=== PATIENT | female | born 1940 | race African-American/Black ===

== ENCOUNTER 2016-08-23 02:41 | Inpatient (IN) | payer MEDICARE, MEDICAID ==
[2016-08-23] VITALS (7 sets, daily range): BP systolic 126–148; BP diastolic 61–78
[~2016-08-23] VITALS: Ht 147.3 cm; Wt 91.3 kg
[2016-08-23] MEDS ORDERED: ALUM-MAG HYDRO360 ML PO (03:02)
[2016-08-23] MEDS ORDERED: GLIPIZIDE5 MG ORAL (03:02)
[2016-08-23] MEDS ORDERED: ASPIRIN81 MG ORAL (03:02)
[2016-08-23] MEDS ORDERED: TRADJENTA5 MG PO (03:02)
[2016-08-23] MEDS ORDERED: TYLENOL650 MG/20. ORAL (03:02)
[2016-08-23] MEDS ORDERED: NORVASC10 MG ORAL (03:02)
[2016-08-23] MEDS ORDERED: PRAVASTATIN SOD20 M1 ORAL (03:02)
[2016-08-23] MEDS ORDERED: DOCUSATE SODIU250 MG ORAL (03:02)
[2016-08-23] MEDS ORDERED: MILK OF MA400 MG/51 ORAL (03:02)
[2016-08-23] MEDS ORDERED: TYLENOL325 MG ORAL (03:02)
[2016-08-23] MEDS ORDERED: ATORVASTATIN CA10 MG ORAL (03:02)
[2016-08-23] MEDS ORDERED: MULTIVITAMINS1 EA14 PO (03:02)
[2016-08-23] MEDS ORDERED: NEPHRO-VITE RX1 EAC1 PO (03:02)
[2016-08-23] MEDS ORDERED: FERROUS SULFAT325 MG ORAL (03:02)
[2016-08-23] MEDS ORDERED: GEODON40 MG ORAL (03:02)
[2016-08-23] MEDS ORDERED: ZOFRAN8 MG ORAL (03:02)
[2016-08-23] MEDS ORDERED: INVEGA SUS156 MG/11 IM (03:02)
[2016-08-23] MEDS ORDERED: LAMICTAL100 MG ORAL (03:02)
[2016-08-23 03:15] LABS: BASOPHILS % (AUTO) 0.5 % (0.0-2.0); EOSINOPHILS % (AUTO) 1.4 % (0.0-3.0); LYMPHOCYTES % (AUTO) 17.7 % (20.0-45.0); MEAN CORPUSCULAR HEMOGLOBIN 24.6 PG (27.0-31.0); MEAN CORPUSCULAR HGB CONC 30.8 G/DL (32.0-36.0); MEAN CORPUSCULAR VOLUME 80 FL (80-99); MONOCYTES % (AUTO) 6.3 % (1.0-10.0); NEUTROPHILS % (AUTO) 74.1 % (45.0-75.0); PLATELET COUNT 250 K/UL (150-450); RED BLOOD COUNT 3.78 M/UL (4.20-5.40); RED CELL DISTRIBUTION WIDTH 17.5 % (11.6-14.8); WHITE BLOOD COUNT 10.7 K/UL (4.8-10.8)
[2016-08-23 03:18] LABS: APPEARANCE,URINE CLEAR; KETONES,URINE NEGATIVE (NEGATIVE); LEUKOCYTE ESTERASE ,URINE NEGATIVE (NEGATIVE); NITRITE,URINE NEGATIVE (NEGATIVE); PH,URINE 5 (4.5-8.0); UROBILINOGEN,URINE NORMAL MG/DL (0.0-1.0)
[2016-08-23 03:32] LABS: ALANINE AMINOTRANSFERASE 11 U/L (3-33); ANION GAP 18 (5-15); ASPARTATE AMINO TRANSFERASE 13 U/L (5-40); CALCIUM 8.6 mg/dL (8.6-10.2); CARBON DIOXIDE 19 mEQ/L (20-30); CHLORIDE 103 mEQ/L (98-107); CREATININE 2.5 mg/dL (0.5-0.9); HEMOLYSIS 36; POTASSIUM 5.1 mEQ/L (3.4-4.9); SODIUM 140 mEQ/L (135-145); TOTAL PROTEIN 6.8 g/dL (6.6-8.7)
[2016-08-23 03:46] LABS: PROTEIN,URINE NEGATIVE (NEGATIVE)
[2016-08-23 03:48] LABS: TROPONIN I < 0.30 ng/mL (<=0.30)
[2016-08-23 03:57] LABS: CKMB 1.8 ng/mL (< 3.8)
--- NOTE | 2016-08-23 04:14 | Emergency Room Report ---
History of Present Illness General Chief Complaint: Chest Pain Source: Medical Record Present Illness HPI 76YOF +smoker with SOB for 4 days, worse at night. Improves with sitting upright. Sleeps with 1 pillow. Decreased exercise tolerance on ambulating or using wheelchair at SNF. C/o weight gain. 197lbs in March 2016, now 208 per patient. Denies fever/chills, cough. Adds salt to food. Recently ate hamburgs, hotdogs at SNF. Drinks a lot of water. PMHx: COPD, Bipolar, Schizophrenia, ISABEL, DM, iron def anemia No known CHF history. Allergies: Coded Allergies: No Known Allergies (Unverified , 08/23/16) Patient History Past Medical History: other - see HPI Past Surgical History: none Pertinent Family History: none Social History: Reports: smoking Now: No Immunizations: UTD Reviewed Nursing Documentation: PMH: Agreed, PSxH: Agreed Nursing Documentation-PMH Hx Hypertension: Yes Hx COPD: Yes Hx Diabetes: Yes Hx Gastrointestinal Problems: Yes - GERD History Of Psychiatric Problem: Yes - BIPOLAR SCHIZO Review of Systems All Other Systems: negative except mentioned in HPI Physical Exam Vital Signs Date Time Temp Pulse Resp B/P Pulse Ox O2 Delivery O2 Flow Rate FiO2 08/23/16 02:35 97.7 92 16 143/61 95 Room Air Sp02 EP Interpretation: reviewed, normal General Appearance: normal inspection, well appearing, no apparent distress, alert, GCS 15, non-toxic Head: normocephalic, atraumatic Eyes: bilateral eye EOMI, bilateral eye PERRL ENT: normal ENT inspection, hearing grossly normal, normal voice Neck: normal inspection, full range of motion, supple, no bony tend Respiratory: normal inspection, lungs clear, normal breath sounds, no respiratory distress, no retraction, no wheezing Cardiovascular #1: regular rate, rhythm, no edema Gastrointestinal: normal inspection, normal bowel sounds, non tender, soft, no guarding, no hernia Genitourinary: no CVA tenderness Musculoskeletal: normal inspection, back normal, normal range of motion, Gina' s Sign negative, other - Bilateral R>L pitting edema 2+ Neurologic: normal inspection, alert, oriented x3, responsive, 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 I attest that this information is true, accurate and complete to the best of my knowledge. I understand that any falsification, omission, or concealment of material fact may subject me to administrative, civil, or criminal liability. This patient warrants hospital admission for extreme of age and has a condition that cannot be treated as outpatient. Diagnostic Impression: Primary Impression: Chest pain Qualified Codes: R07.9 - Chest pain, unspecified Additional Impressions: ISABEL (acute kidney injury) Hyperkalemia ER Course SOB - Possibly multifactorial COPD + new onset CHF - + smoker - No wheezing, doubt COPD exacerbation -2 days duration - Unlikely ACS given Troponin 0 here and ECG without ischemia or ST changes - Mild BNP elevation with bilateral pitting edema and CXR with pulm congestion. ?acute CHF, recent dietary indiscretion, decreased exercise tolerance O2 sat 100% on RA, does not warrant Lasix given ISABEL or BIPAP at this time. - Warrants admission for ACS as cause of acute CHF, cardiac echo, Cardiology consult, consider starting Lasix HyperK - Mild, 5.1 - Tx with albuterol ISABEL vs CKD - unknown baseline as patient hasnt been here before - No records from SNF with previous labs Endorsed to Dr Phelps for tele admit at 443am. EKG Diagnostic Results Rate: normal Rhythm: NSR ST Segments: no acute changes ASA given to the pt in ED: No Rhythm Strip Diag. Results EP Interpretation: yes Rate: 85 Rhythm: NSR, no PVC's, no ectopy Chest X-Ray Diagnostic Results EP Interpretation: Yes Findings: other - Cardiomegaly, bilateral mild interstitial fluid Number of Views: 1 Last Vital Signs Date Time Temp Pulse Resp B/P Pulse Ox O2 Delivery O2 Flow Rate FiO2 08/23/16 02:55 87 16 Room Air 08/23/16 02:55 97.7 143/61 95 Status: improved Disposition: ADMITTED INPATIENT Condition: Serious Referrals: ROSALES PHELPS (PCP) STEVE ZAPATA M.D. August 23, 2016 04:14
[2016-08-23] MEDS ORDERED: Albuterol ud Inhalation ONE (04:31)
[2016-08-23] MEDS ORDERED: Albuterol ud Inhalation HHN ONE (04:45)
[2016-08-23] MEDS ORDERED: Miralax 17gm pkt ORAL PRN (07:15)
[2016-08-23] MEDS ORDERED: Ketorolac 30mg Inj IV PRN (07:15)
[2016-08-23] MEDS ORDERED: DuoNeb 0.5-3(2.5)mg/3ml neb HHN PRN (07:15)
[2016-08-23] MEDS ORDERED: Diltiazem 25mg/5ml IV PRN (07:15)
[2016-08-23] MEDS ORDERED: Enalaprilat 2.5mg/2ml Inj IV PRN (07:15)
[2016-08-23] MEDS ORDERED: Morphine Sulfate 2mg/ml Inj IVP PRN (07:15)
[2016-08-23] MEDS ORDERED: Nitroglycerin Subl 0.4mg tab (Bottle Of 25) SL PRN (07:30)
--- NOTE | 2016-08-23 07:57 | General Progress Note ---
Progress Note Progress Note [id number] full consult dictated CRISTEL VALENCIA August 23, 2016 07:57
--- NOTE | 2016-08-23 08:06 | Cardiology Progress Note ---
Assessment/Plan Assessment/Plan The patient is seen and examined, full consult will be dictated shortly. Objective Last 24 Hour Vital Signs Date Time Temp Pulse Resp B/P Pulse Ox O2 Delivery O2 Flow Rate FiO2 08/23/16 06:40 97.3 77 20 147/77 97 Room Air 08/23/16 06:20 97.7 84 18 132/78 95 Room Air 0.5 08/23/16 05:59 97.7 84 18 132/78 95 Room Air 08/23/16 04:36 84 18 Room Air 08/23/16 04:36 97.7 81 16 126/72 97 Nasal Cannula 0.5 08/23/16 04:36 84 18 96 Room Air 08/23/16 02:55 87 16 Room Air 08/23/16 02:55 97.7 87 16 143/61 95 Room Air 08/23/16 02:35 97.7 92 16 143/61 95 Room Air Intake and Output 08/22/16 08/23/16 19:00 07:00 Intake Total 0 ml Balance 0 ml Intake Oral 0 ml # Voids 1 Laboratory Tests Test 08/23/16 02:51 08/23/16 03:08 White Blood Count 10.7 K/UL (4.8-10.8) Red Blood Count 3.78 M/UL (4.20-5.40) L Hemoglobin 9.3 G/DL (12.0-16.0) L Hematocrit 30.3 % (37.0-47.0) L Mean Corpuscular Volume 80 FL (80-99) Mean Corpuscular Hemoglobin 24.6 PG (27.0-31.0) L Mean Corpuscular Hemoglobin Concent 30.8 G/DL (32.0-36.0) L Red Cell Distribution Width 17.5 % (11.6-14.8) H Platelet Count 250 K/UL (150-450) Mean Platelet Volume 6.0 FL (6.5-10.1) L Neutrophils (%) (Auto) 74.1 % (45.0-75.0) Lymphocytes (%) (Auto) 17.7 % (20.0-45.0) L Monocytes (%) (Auto) 6.3 % (1.0-10.0) Eosinophils (%) (Auto) 1.4 % (0.0-3.0) Basophils (%) (Auto) 0.5 % (0.0-2.0) Sodium Level 140 mEQ/L (135-145) Potassium Level 5.1 mEQ/L (3.4-4.9) H Chloride Level 103 mEQ/L (98-107) Carbon Dioxide Level 19 mEQ/L (20-30) L Anion Gap 18 (5-15) H Blood Urea Nitrogen 35 mg/dL (7-23) H Creatinine 2.5 mg/dL (0.5-0.9) H Estimat Glomerular Filtration Rate mL/min (>60) Glucose Level 111 mg/dL (74-106) H Calcium Level 8.6 mg/dL (8.6-10.2) Total Bilirubin < 0.2 mg/dL (0.0-1.2) Aspartate Amino Transf (AST/SGOT) 13 U/L (5-40) Alanine Aminotransferase (ALT/SGPT) 11 U/L (3-33) Alkaline Phosphatase 88 U/L (35-104) Total Creatine Kinase 51 U/L (26-140) Creatine Kinase MB 1.8 ng/mL (< 3.8) Creatine Kinase MB Relative Index 3.5 Troponin I < 0.30 ng/mL (<=0.30) Pro-B-Type Natriuretic Peptide 261 pg/mL (0-125) H Total Protein 6.8 g/dL (6.6-8.7) Albumin 3.5 g/dL (3.5-5.2) Globulin 3.3 g/dL Albumin/Globulin Ratio 1.0 (1.0-2.7) Urine Color Yellow Urine Appearance Clear Urine pH 5 (4.5-8.0) Urine Specific [place] 1.010 (1.005-1.035) Urine Protein Negative (NEGATIVE) Urine Glucose (UA) Negative (NEGATIVE) Urine Ketones Negative (NEGATIVE) Urine Occult Blood Negative (NEGATIVE) Urine Nitrite Negative (NEGATIVE) Urine Bilirubin Negative (NEGATIVE) Urine Urobilinogen Normal MG/DL (0.0-1.0) Urine Leukocyte Esterase Negative (NEGATIVE) Urine Opiates Screen Negative (NEGATIVE) Urine Barbiturates Screen Negative (NEGATIVE) Phencyclidine (PCP) Screen Negative (NEGATIVE) Urine Amphetamines Screen Negative (NEGATIVE) Urine Benzodiazepines Screen Negative (NEGATIVE) Urine Cocaine Screen Negative (NEGATIVE) Urine Marijuana (THC) Screen Negative (NEGATIVE) KHALIF RAY August 23, 2016 08:06
[2016-08-23] MEDS ORDERED: Aspirin Baby 81mg ORAL SCH (09:00)
[2016-08-23 09:49] LABS: ALANINE AMINOTRANSFERASE 9 U/L (3-33); ANION GAP 13 (5-15); ASPARTATE AMINO TRANSFERASE 9 U/L (5-40); CALCIUM 9.3 mg/dL (8.6-10.2); CARBON DIOXIDE 25 mEQ/L (20-30); CHLORIDE 103 mEQ/L (98-107); CREATININE 2.6 mg/dL (0.5-0.9); HEMOLYSIS 0; PHOSPHORUS 3.4 mg/dL (2.5-4.8); POTASSIUM 4.6 mEQ/L (3.4-4.9); SODIUM 141 mEQ/L (135-145); TOTAL PROTEIN 7.2 g/dL (6.6-8.7); URIC ACID 7.1 mg/dL (3.0-7.5)
[2016-08-23 10:16] LABS: TROPONIN I < 0.30 ng/mL (<=0.30)
[2016-08-23] MEDS: NovoLOG Insulin Flexpen SUBQ SCH ×3 (11:30→21:00)
--- NOTE | 2016-08-23 11:53 | Diagnostic Imaging Report ---
Indication: Chest pain Technique: One view of the chest Comparison: none Findings: Body habitus limits evaluation The heart is enlarged. There is mild pulmonary venous congestion. Pleural spaces are grossly clear. There are degenerative changes of both shoulders Impression: Cardiomegaly. Mild pulmonary venous congestion This agrees with the preliminary interpretation provided by the emergency room physician
--- NOTE | 2016-08-23 12:22 | Consultation ---
History of Present Illness General Date patient seen: August 23, 2016 Chief Complaint: Chest Pain Referring physician: dr Ragland Reason for Consultation: dyspnea Present Illness HPI 76 year old female with pmhx of smoking, COPD, Bipolar, Schizophrenia, DM, iron def presented [place] [facility] [place] with SOB for 4 days, worse at night, improves with sitting upright. Sleeps with 1 pillow. Decreased exercise tolerance on ambulating or using wheelchair at SNF. Her CXR showed mild bilateral pulmonary edema. she is admitted to telemetry for further evaluation. Allergies: Coded Allergies: No Known Allergies (Unverified , 08/23/16) Medication History Scheduled Amlodipine Besylate (Norvasc), 10 MG ORAL DAILY, (Reported) Aspirin* (Aspirin*), 81 MG ORAL DAILY, (Reported) Atorvastatin Calcium* (Lipitor*), 10 MG ORAL BEDTIME, (Reported) Docusate Sodium* (Docusate Sodium*), 250 MG ORAL ONCE, (Reported) Ferrous Sulfate* (Ferrous Sulfate*), 325 MG ORAL DAILY, (Reported) Glipizide* (Glipizide*), 2.5 MG ORAL DAILY, (Reported) Lamotrigine* (Lamictal*), 100 MG ORAL BID, (Reported) Pravastatin Sod* (Pravastatin Sod*), 10 MG ORAL BEDTIME, (Reported) Ziprasidone Hcl* (Geodon*), 60 MG ORAL DAILY, (Reported) Scheduled PRN Acetaminophen (Tylenol), 650 MG ORAL Q4HR PRN for Pain Scale (3-5), (Reported) Acetaminophen (Acetaminophen), 1,000 MG ORAL Q4HR PRN for Pain Scale (6-10), ( Reported) Mag Hydrox/Al Hydrox/Simeth (Alum-Mag Hydroxide-Simeth Liq), 30 ML PO EVERY 4 HOURS PRN for gi distress, (Reported) Magnesium Hydroxide* (Milk Of Magnesia*), 30 ML ORAL DAILY PRN for Constipation, (Reported) Ondansetron Hcl* (Zofran*), 8 MG ORAL Q6H PRN for Nausea & Vomiting, (Reported) Miscellaneous Medications Linagliptin (Tradjenta), 5 MG PO, (Reported) Multivitamin (Multivitamins), 1 EACH PO, (Reported) Paliperidone Palmitate (Invega Sustenna), 156 MG IM, (Reported) Vit B Cmplx 3/Fa/Vit C/Biotin (Nephro-Sylvester Rx Tablet), 1 EACH PO, (Reported) Patient History Healthcare decision maker Resuscitation status Full Code Advanced Directive on File Past Medical/Surgical History Past Medical/Surgical History: (1) Morbid obesity Review of Systems All Other Systems: negative except mentioned in HPI Physical Exam General Appearance: WD/WN Lines, tubes and drains: peripheral, central line HEENT: normocephalic Neck: non-tender, normal alignment Respiratory/Chest: chest wall non-tender, lungs clear Breasts: no masses Cardiovascular/Chest: normal peripheral pulses Abdomen: normal bowel sounds Extremities: normal range of motion Skin Exam: normal pigmentation Last 24 Hour Vital Signs Date Time Temp Pulse Resp B/P Pulse Ox O2 Delivery O2 Flow Rate FiO2 08/23/16 10:46 109 142/64 08/23/16 10:46 109 142/64 08/23/16 08:25 97.0 109 20 142/64 95 Room Air 08/23/16 06:40 97.3 77 20 147/77 97 Room Air 08/23/16 06:20 97.7 84 18 132/78 95 Room Air 0.5 08/23/16 05:59 97.7 84 18 132/78 95 Room Air 08/23/16 04:36 84 18 Room Air 08/23/16 04:36 97.7 81 16 126/72 97 Nasal Cannula 0.5 08/23/16 04:36 84 18 96 Room Air 08/23/16 02:55 87 16 Room Air 08/23/16 02:55 97.7 87 16 143/61 95 Room Air 08/23/16 02:35 97.7 92 16 143/61 95 Room Air Intake and Output 08/22/16 08/23/16 19:00 07:00 Intake Total 0 ml Balance 0 ml Intake Oral 0 ml # Voids 1 Laboratory Tests Test 08/23/16 02:51 08/23/16 03:08 08/23/16 09:05 White Blood Count 10.7 K/UL (4.8-10.8) Red Blood Count 3.78 M/UL (4.20-5.40) L Hemoglobin 9.3 G/DL (12.0-16.0) L Hematocrit 30.3 % (37.0-47.0) L Mean Corpuscular Volume 80 FL (80-99) Mean Corpuscular Hemoglobin 24.6 PG (27.0-31.0) L Mean Corpuscular Hemoglobin Concent 30.8 G/DL (32.0-36.0) L Red Cell Distribution Width 17.5 % (11.6-14.8) H Platelet Count 250 K/UL (150-450) Mean Platelet Volume 6.0 FL (6.5-10.1) L Neutrophils (%) (Auto) 74.1 % (45.0-75.0) Lymphocytes (%) (Auto) 17.7 % (20.0-45.0) L Monocytes (%) (Auto) 6.3 % (1.0-10.0) Eosinophils (%) (Auto) 1.4 % (0.0-3.0) Basophils (%) (Auto) 0.5 % (0.0-2.0) Sodium Level 140 mEQ/L (135-145) 141 mEQ/L (135-145) Potassium Level 5.1 mEQ/L (3.4-4.9) H 4.6 mEQ/L (3.4-4.9) Chloride Level 103 mEQ/L (98-107) 103 mEQ/L (98-107) Carbon Dioxide Level 19 mEQ/L (20-30) L 25 mEQ/L (20-30) Anion Gap 18 (5-15) H 13 (5-15) Blood Urea Nitrogen 35 mg/dL (7-23) H 35 mg/dL (7-23) H Creatinine 2.5 mg/dL (0.5-0.9) H 2.6 mg/dL (0.5-0.9) H Estimat Glomerular Filtration Rate mL/min (>60) mL/min (>60) Glucose Level 111 mg/dL (74-106) H 127 mg/dL (74-106) H Calcium Level 8.6 mg/dL (8.6-10.2) 9.3 mg/dL (8.6-10.2) Total Bilirubin < 0.2 mg/dL (0.0-1.2) 0.2 mg/dL (0.0-1.2) Aspartate Amino Transf (AST/SGOT) 13 U/L (5-40) 9 U/L (5-40) Alanine Aminotransferase (ALT/SGPT) 11 U/L (3-33) 9 U/L (3-33) Alkaline Phosphatase 88 U/L (35-104) 89 U/L (35-104) Total Creatine Kinase 51 U/L (26-140) 63 U/L (26-140) Creatine Kinase MB 1.8 ng/mL (< 3.8) Creatine Kinase MB Relative Index 3.5 Troponin I < 0.30 ng/mL (<=0.30) < 0.30 ng/mL (<=0.30) Pro-B-Type Natriuretic Peptide 261 pg/mL (0-125) H Total Protein 6.8 g/dL (6.6-8.7) 7.2 g/dL (6.6-8.7) Albumin 3.5 g/dL (3.5-5.2) 3.7 g/dL (3.5-5.2) Globulin 3.3 g/dL 3.5 g/dL Albumin/Globulin Ratio 1.0 (1.0-2.7) 1.0 (1.0-2.7) Urine Color Yellow Urine Appearance Clear Urine pH 5 (4.5-8.0) Urine Specific [place] 1.010 (1.005-1.035) Urine Protein Negative (NEGATIVE) Urine Glucose (UA) Negative (NEGATIVE) Urine Ketones Negative (NEGATIVE) Urine Occult Blood Negative (NEGATIVE) Urine Nitrite Negative (NEGATIVE) Urine Bilirubin Negative (NEGATIVE) Urine Urobilinogen Normal MG/DL (0.0-1.0) Urine Leukocyte Esterase Negative (NEGATIVE) Urine Opiates Screen Negative (NEGATIVE) Urine Barbiturates Screen Negative (NEGATIVE) Phencyclidine (PCP) Screen Negative (NEGATIVE) Urine Amphetamines Screen Negative (NEGATIVE) Urine Benzodiazepines Screen Negative (NEGATIVE) Urine Cocaine Screen Negative (NEGATIVE) Urine Marijuana (THC) Screen Negative (NEGATIVE) Plasma/Serum Osmolality Pending Uric Acid 7.1 mg/dL (3.0-7.5) Phosphorus Level 3.4 mg/dL (2.5-4.8) Magnesium Level 2.0 mg/dL (1.7-2.5) Free Thyroxine 1.05 ng/dL (0.86-1.85) Free Triiodothyronine Pending Cortisol Pending Height (Feet): 4 Height (Inches): 10.00 Weight (Pounds): 208 Medications Current Medications Medications (Trade) Dose Ordered Sig/Jaclyn Route PRN Reason Start Time Stop Time Status Last Admin Dose Admin Acetaminophen (Tylenol) 650 mg Q4H PRN ORAL T>100.5 08/23/16 07:15 09/22/16 07:14 Albuterol/ Ipratropium (DuoNeb 0.5-3(2.5)mg/3ml) 3 ml Q4H PRN HHN Shortness of Breath 08/23/16 07:15 08/28/16 07:14 Amlodipine Besylate (Norvasc) 10 mg DAILY ORAL 08/23/16 09:00 09/22/16 08:59 08/23/16 10:46 Aspirin (ASA) 162 mg DAILY ORAL 08/23/16 09:00 09/22/16 08:59 08/23/16 10:46 Atorvastatin Calcium (Lipitor) 10 mg BEDTIME ORAL 08/23/16 21:00 09/22/16 20:59 Carvedilol (Coreg) 3.125 mg EVERY 12 HOURS ORAL 08/23/16 09:00 09/22/16 08:59 08/23/16 10:46 Dextrose (Dextrose 50%) STAT PRN IV Hypoglycemia 08/23/16 07:15 09/22/16 07:14 Diltiazem HCl (Cardizem) 10 mg EVERY HOUR PRN IV HR>120 BPM 08/23/16 07:15 09/22/16 07:14 Enalaprilat (Vasotec) 2.5 mg Q6H PRN IV SBP>160 mmHg 08/23/16 07:15 09/22/16 07:14 Heparin Sodium (Porcine) (Heparin 5000 units/ml) 5,000 units EVERY 8 HOURS SUBQ 08/23/16 14:00 09/22/16 13:59 Insulin Aspart (NovoLOG) BEFORE MEALS AND HS SUBQ 08/23/16 11:30 09/22/16 11:29 Lamotrigine (LaMICtal) 100 mg Q12HR ORAL 08/23/16 09:00 09/22/16 08:59 08/23/16 10:46 Morphine Sulfate (Morphine Sulfate) 2 mg Q4H PRN IVP Severe Pain (Pain Scale 7-10) 08/23/16 07:15 08/30/16 07:14 Nitroglycerin (Ntg) 0.4 mg Q5MIN X 3 DOSES PRN SL Prn Chest Pain 08/23/16 07:30 09/22/16 07:29 Ondansetron HCl (Zofran) 4 mg Q6H PRN IVP Nausea & Vomiting 08/23/16 07:15 09/22/16 07:14 Polyethylene Glycol (Miralax) 17 gm DAILYPRN PRN ORAL Constipation 08/23/16 07:15 09/22/16 07:14 Temazepam (Restoril) 15 mg HSPRN PRN ORAL Insomnia 08/23/16 21:00 08/30/16 20:59 Assessment/Plan Problem List: (1) Hyperkalemia ICD Codes: E87.5 - Hyperkalemia SNOMED: 01941539 (2) ISABEL (acute kidney injury) ICD Codes: N17.9 - Acute kidney failure, unspecified SNOMED: 99544917 (3) Chest pain ICD Codes: R07.9 - Chest pain, unspecified SNOMED: 23388661 Qualifiers: Qualified Codes: R07.9 - Chest pain, unspecified (4) Morbid obesity ICD Codes: E66.01 - Morbid (severe) obesity due to excess calories SNOMED: 140323674, [id number] Assessment/Plan respiratory treatment cardiac evaluation diuretics renal evaluation sliding scale. JORGE CHARLTON August 23, 2016 12:22
--- NOTE | 2016-08-23 12:33 | Diagnostic Imaging Report ---
APPROVED REPORT CPT Code: 53927 Present Symptoms Lower Extremity Pain: Bilateral BILATERAL: Imaging reveals a patent deep venous system bilaterally. There is no evidence of thrombus within the femoral, popliteal or tibial segments. The greater saphenous veins are also within normal limits. Doppler indicates normal spontaneous flow within these segments.
--- NOTE | 2016-08-23 13:15 | Consultation ---
DATE OF CONSULTATION: 08/23/2016 NEPHROLOGY CONSULTATION CONSULTING PHYSICIAN: Suzanne Abrams M.D. REFERRING PHYSICIAN: Emir Ragland D.O. REASON FOR CONSULTATION: Acute renal failure. HISTORY OF PRESENT ILLNESS: The patient is a 76-year-old, female with past medical history significant for diabetes, hypertension, history of bipolar disease and schizophrenia, who was brought in to [facility] for evaluation of acute shortness of breath. Apparently, the patient started having worsening of her shortness of breath for the last 4 days also she noticed lower extremity edema. She was brought into ER, in the ER, the patient found to be fluid overloaded. There was found to have an acute renal failure. Consequently, the patient was then admitted in telemetry unit. I was called for management of renal disease and electrolyte imbalance. PAST MEDICAL HISTORY: Includin. Diabetes. 2. Diabetic neuropathy. 3. Hypertension. 4. Morbid obesity. 5. Bipolar disease. 6. Schizophrenia. 7. History of COPD. PAST SURGICAL HISTORY: None. MEDICATIONS: Medication at longterm are includin. Aspirin. 2. Glipizide. 3. Lipitor. 4. Norvasc. 5. Insulin. 6. Aspirin 81 mg. 7. Norvasc 10 mg p.o. daily. 8. Iron sulfate 325 mg. 9. 95 mg. 10. Lamictal 10 mg p.o. daily. 11. Tradjenta 5 mg p.o. daily. 12. Magnesium sulfate 400 mg p.r.n. 13. Ambien one tablet p.o. daily. 14. Zofran 8 mg p.o. daily p.r.n. nausea and vomiting. 15. Pravastatin 40 mg at bedtime. 16. Nephro-Sylvester one tablet p.o. daily. 17. Geodon 40 mg p.o. daily. 18. Tylenol 650 mg q. 6h p.r.n. pain. ALLERGIES: No known drug allergies. SOCIAL HISTORY: Long history of smoking. There is no current history of alcohol or drug use. FAMILY HISTORY: Negative for any history of premature heart disease. REVIEW OF SYSTEMS: General: She complained of generalized weakness. Denied any fever, chills, or night sweats. Head And Neck: Denies any dysphagia, odynophagia, blurry vision, headache, or neck stiffness. Pulmonary: Complaining of shortness of breath. No cough. No sputum. Cardiovascular: Denies any chest pain or palpitations. Complained of orthopnea, PND and leg swelling. Gastrointestinal: Denies any nausea, vomiting, diarrhea, hematemesis, or hematochezia. Genitourinary: Denies any dysuria, frequency, or hematuria. Musculoskeletal: She denies any weakness or numbness. PHYSICAL EXAMINATION: VITAL SIGNS: The patient had temperature of 97.0 degrees, pulse of 92, blood pressure 143/61, pulse rate of 95, and respiratory rate of 18. HEAD AND NECK: No JVP. No LAD. No thyromegaly. Extraocular movement are intact. Pupils are reactive to light and accommodation. LUNGS: Bilateral crackles and decreased breathing sound on the both sides. CARDIAC: Regular rate and rhythm. S1 and S2. No murmur. No rub. ABDOMEN: Soft, nontender, and nondistended. EXTREMITIES: A 3+ edema. No clubbing. No cyanosis. LABORATORY AND DIAGNOSTIC DATA: The patient has sodium 140, potassium 5.1, chloride 103, bicarbonate 19, BUN of 35, creatinine of 2.5, glucose of 111, and calcium of 8.6. AST of 13, ALT of 11, and alkaline phosphorus of 88. BNP of 261. Total protein of 6.8, albumin of 3.5. CBC, WBC count of 10.7, hemoglobin of 9.3, hematocrit of 30, and platelet count of 260,000. UA revealed specific gravity of 1.010, pH of 5, no WBC, no RBC, no protein. ASSESSMENT: 1. Mild hyperkalemia. 2. Acute renal failure. The etiology of acute renal failure including acute tubular necrosis due to unstable hemodynamics. 3. Chronic kidney disease due to diabetic nephropathy versus hypertensive nephrosclerosis without any evidence of proteinuria in the urine. 4. Lower-extremity edema, possibility are including congestive heart failure versus the patient on chronically on Norvasc, which could cause vasodilation and lower extremity edema. PLAN: Plan for the patient to obtain a random urine protein creatinine ratio to calculate the proteinuria. Check the urine sodium and creatinine to calculate fractional excretion of sodium. Ultrasound of the kidney to evaluate the kidney size. Check the Is and Os, daily weight with also do a duplex lower extremity to rule out DVT. I would like to thank, Dr. Emir Ragland, for allowing me to participate in the care of this patient. Suzanne Abrams M.D. DR: Mahamed JOB#: [id number] CC:
[2016-08-23] MEDS: Heparin 5000 units/ml inj SUBQ SCH ×2 (14:00→22:00)
--- NOTE | 2016-08-23 19:00 | History and Physical Report ---
DATE OF ADMISSION: 08/23/2016 TIME SEEN: 1 p.m. CONSULTANTS: 1. Moriah Almonte M.D. 2. Anand Burris M.D. 3. Suzanne Abrams M.D. 4. Paola Canchola M.D. CHIEF COMPLAINTS: Shortness of breath, slight chest pain, and encephalopathy. BRIEF HISTORY: This is a 76-year-old female from [facility], presented with increased shortness of breath and slight chest pain, diagnosed with the above, CHF exacerbation with edema, and admitted to telemetry for further care. Currently, slightly angry, sitting in chair, slight short of breath, no complaints. PAST MEDICAL HISTORY: Includes CHF, encephalopathy, ISABEL, edema, and thyroid problem. PAST SURGICAL HISTORY: Hysterectomy. MEDICATIONS: Lipitor, Restoril, heparin, Lasix, NovoLog, Norvasc, Lamictal, aspirin, Coreg, nitroglycerin, DuoNeb, Tylenol, morphine, MiraLax, Zofran, Levophed, and Cardizem. ALLERGIES: Denies. SOCIAL HISTORY: Positive for smoking. No alcohol. No intravenous drug abuse. FAMILY HISTORY: Noncontributory. REVIEW OF SYSTEMS: Slight chest pain. Slight shortness of breath. No nausea, vomiting, or diarrhea. PHYSICAL EXAMINATION: GENERAL: Slightly anxious in bed, oriented x2, and in no acute distress. VITAL SIGNS: Show temperature is 97 degrees, pulse 77, respirations 18, and blood pressure 148/68. CARDIOVASCULAR: No murmurs. LUNGS: Poor air exchange. ABDOMEN: Positive bowel sounds. Soft, nontender, and nondistended. EXTREMITIES: Show no cyanosis or clubbing. A 1+ edema bilaterally. NEUROLOGIC: The patient moves all extremities. Slightly lower extremity weakness noted. LABORATORY DATA: Lab exam show hemoglobin 9.3, otherwise CBC is normal. BMP shows initially potassium of 5.1, bicarbonate 12, BUN and creatinine 35 and 2.5, and glucose 111. BMP is 361. Urinalysis is negative. Urine tox is negative. ASSESSMENT: 1. Shortness of breath. 2. Slight chest pain. 3. Anemia. 4. Congestive heart failure. 5. Encephalopathy. 6. Acute kidney injury. 7. Edema. 8. Thyroid disease. PLAN: 1. Continue premedications. 2. O2 and pulmonary treatment. 3. Diuresis. 4. Blood pressure control. 5. Dietary followup. 6. OT, PT, and dietary evaluation. 7. CBC and BMP in the morning. 8. Troponin q.8 x3. 9. EKG in the morning. 10. Dr. Almonte, Dr. Burris, Dr. Abrams, and Dr. Canchola to consult. We will continue to follow this patient medically. Emir Ragland D.O. DR: STANISLAV JOB#: [id number] CC:
[2016-08-24] MEDS: Heparin 5000 units/ml inj SUBQ SCH ×4 (05:57→22:00)
[2016-08-24] MEDS: NovoLOG Insulin Flexpen SUBQ SCH ×4 (05:57→21:00)
[2016-08-24] MEDS ORDERED: Nitroglycerin Subl 0.4mg tab (Bottle Of 25) SL PRN (06:15)
[2016-08-24] MEDS ORDERED: Enalaprilat 2.5mg/2ml Inj IV PRN (06:40)
[2016-08-24] MEDS ORDERED: DuoNeb 0.5-3(2.5)mg/3ml neb HHN PRN (06:43)
[2016-08-24] MEDS ORDERED: Morphine Sulfate 2mg/ml Inj IVP PRN (06:43)
[2016-08-24] MEDS ORDERED: Miralax 17gm pkt ORAL PRN (06:44)
[2016-08-24 06:50] LABS: MEAN CORPUSCULAR HEMOGLOBIN 25.4 PG (27.0-31.0); MEAN CORPUSCULAR HGB CONC 32.1 G/DL (32.0-36.0); MEAN CORPUSCULAR VOLUME 79 FL (80-99); MEAN PLATELET VOLUME 5.7 FL (6.5-10.1); PLATELET COUNT 273 K/UL (150-450); RED BLOOD COUNT 3.84 M/UL (4.20-5.40); RED CELL DISTRIBUTION WIDTH 17.1 % (11.6-14.8); WHITE BLOOD COUNT 10.7 K/UL (4.8-10.8)
[2016-08-24] MEDS ORDERED: Diltiazem 25mg/5ml IV PRN (07:00)
[2016-08-24 07:04] LABS: PROTHROMBIN TIME 10.5 SEC (9.30-11.50)
[2016-08-24 07:12] LABS: APPEARANCE,URINE CLEAR; KETONES,URINE NEGATIVE (NEGATIVE); LEUKOCYTE ESTERASE ,URINE NEGATIVE (NEGATIVE); NITRITE,URINE NEGATIVE (NEGATIVE); PH,URINE 6 (4.5-8.0); PROTEIN,URINE 3+ (NEGATIVE); UROBILINOGEN,URINE NORMAL MG/DL (0.0-1.0)
[2016-08-24 07:31] LABS: BACTERIA,URINE FEW /HPF; RBC,URINE 0-2 /HPF (0 - 2); SQUAMOUS EPITHELIAL CELL,UR FEW /LPF (NONE/OCC); WBC,URINE 0-2 /HPF (0 - 2)
[2016-08-24 07:39] LABS: HEMOLYSIS 5; IRON 31 ug/dL (37-145); TOTAL IRON BINDING CAPACITY 286 ug/dL (250-400)
[2016-08-24 07:42] LABS: TROPONIN I < 0.30 ng/mL (<=0.30)
[2016-08-24 07:46] LABS: ANION GAP 16 (5-15); CALCIUM 9.4 mg/dL (8.6-10.2); CARBON DIOXIDE 22 mEQ/L (20-30); CHLORIDE 104 mEQ/L (98-107); CREATININE 2.3 mg/dL (0.5-0.9); HEMOLYSIS 1; POTASSIUM 4.9 mEQ/L (3.4-4.9); SODIUM 142 mEQ/L (135-145); THYROID STIMULATING HORMONE 2.94 uIU/mL (0.300-4.500)
[2016-08-24 07:50] LABS: CHOLESTEROL/HDL RATIO 2.3 (3.3-4.4); CRP QUANT 1.8 mg/dL (< 0.5)
[2016-08-24 07:59] VITALS: BP 145/74
[2016-08-24 09:07] LABS: ERYTHROCYTE SEDIMENTATION RATE 50 MM/HR (0-30); PATH BLOOD SMEAR/OMC SENT TO PATHOLOGIST
[2016-08-24] MEDS: Aspirin Baby 81mg ORAL SCH (09:13)
[2016-08-24 09:53] LABS: ANISOCYTOSIS 1+; BAND NEUTROPHILS % (MANUAL) 0 % (0-8); BASOPHILS % (MANUAL) 0 % (0-2); EOSINOPHILS % (MANUAL) 0 % (0-3); LYMPHOCYTES % (MANUAL) 12 % (20-45); MICROCYTES 1+; NEUTROPHILS % (MANUAL) 82 % (45-75); PLATELET ESTIMATE ADEQUATE; PLATELET MORPHOLOGY NORMAL; TOTAL CELLS COUNTED 100
[2016-08-24 10:16] LABS: RETICULOCYTE COUNT 1.6 % (0.0-2.0)
[2016-08-24 12:01] VITALS: BP 141/60
--- NOTE | 2016-08-24 13:03 | Pulmonology Progress Note ---
Assessment/Plan Problems: (1) Hyperkalemia (2) ISABEL (acute kidney injury) (3) Chest pain (4) Morbid obesity Assessment/Plan improving walking around labs better echo results noted, EF of 55% venous doppler negative. all notes reviewed Subjective ROS Limited/Unobtainable: No Constitutional: Reports: no symptoms HEENT: Repors: no symptoms Allergies: Coded Allergies: No Known Allergies (Unverified , 08/23/16) Objective Last 24 Hour Vital Signs Date Time Temp Pulse Resp B/P Pulse Ox O2 Delivery O2 Flow Rate FiO2 08/24/16 12:01 97.5 90 18 141/60 93 Room Air 08/24/16 09:13 92 145/74 08/24/16 09:13 92 145/74 08/24/16 07:59 97.2 92 18 145/74 95 Room Air 08/23/16 19:30 80 18 Room Air 21 08/23/16 15:49 97.7 89 20 144/69 95 Room Air 08/23/16 15:11 77 18 Room Air Intake and Output 08/23/16 08/24/16 19:00 07:00 Intake Total 240 ml Balance 240 ml Intake Oral 240 ml # Voids 2 2 General Appearance: WD/WN HEENT: normocephalic Respiratory/Chest: chest wall non-tender, lungs clear Breasts: no masses Cardiovascular: normal peripheral pulses, normal rate Abdomen: normal bowel sounds, soft, non tender, non distended Extremities: no cyanosis Skin: no rash Lymphatic: no neck adenopathy Laboratory Tests 08/24/16 06:06: Urine Creatinine 37.0 08/24/16 06:07: Urine Color Pale yellow, Urine Appearance Clear, Urine pH 6, Urine Specific [place] 1.010, Urine Protein 3+H, Urine Glucose (UA) Negative, Urine Ketones Negative, Urine Occult Blood Negative, Urine Nitrite Negative, Urine Bilirubin Negative, Urine Urobilinogen Normal, Urine Leukocyte Esterase Negative, Urine RBC 0-2, Urine WBC 0-2, Urine Squamous Epithelial Cells Few, Urine Bacteria Few , Urine Eosinophils None seen, Urine Osmolality [Pending], Urine Random Creatinine [Pending], Urine Random Microalbumin [Pending], Urine Random Total Protein 115, Urine Random Sodium 74, Urine Random Chloride 60, Urine Microalbumin/Creatinine Ratio [Pending], Urine Potassium Timed 14 08/24/16 06:25: White Blood Count 10.7, Red Blood Count 3.84L, Hemoglobin 9.7L, Hematocrit 30.4L , Mean Corpuscular Volume 79L, Mean Corpuscular Hemoglobin 25.4L, Mean Corpuscular Hemoglobin Concent 32.1, Red Cell Distribution Width 17.1H, Platelet Count 273, Mean Platelet Volume 5.7L, Neutrophils (%) (Auto) , Lymphocytes (%) (Auto) , Monocytes (%) (Auto) , Eosinophils (%) (Auto) , Basophils (%) (Auto) , Differential Total Cells Counted 100, Neutrophils % ( Manual) 82H, Lymphocytes % (Manual) 12L, Monocytes % (Manual) 6, Eosinophils % ( Manual) 0, Basophils % (Manual) 0, Band Neutrophils 0, Platelet Estimate Adequate, Platelet Morphology Normal, Anisocytosis 1+, Microcytosis 1+, Erythrocyte Sedimentation Rate 50H, Reticulocyte Count 1.6, Prothrombin Time 10.5, Prothromb Time International Ratio 1.0, Activated Partial Thromboplast Time 35H, Sodium Level 142, Potassium Level 4.9, Chloride Level 104, Carbon Dioxide Level 22, Anion Gap 16H, Blood Urea Nitrogen 29H, Creatinine 2.3H, Estimat Glomerular Filtration Rate , Glucose Level 76, Calcium Level 9.4, Iron Level 31L, Total Iron Binding Capacity 286, Percent Iron Saturation 11L, Unsaturated Iron Binding 255, Lactate Dehydrogenase [Pending], Troponin I < 0.30 , C-Reactive Protein, Quantitative 1.8H, Triglycerides Level 67, Cholesterol Level 182, LDL Cholesterol 90, HDL Cholesterol 79H, Cholesterol/HDL Ratio 2.3L, Carcinoembryonic Antigen 1.9, Vitamin B12 Level 864, Folate [Pending], Thyroid Stimulating Hormone (TSH) 2.940 Current Medications Medications (Trade) Dose Ordered Sig/Jaclyn Route PRN Reason Start Time Stop Time Status Last Admin Dose Admin Acetaminophen (Tylenol) 650 mg Q4H PRN ORAL T>100.5 08/24/16 06:39 09/23/16 06:38 Albuterol/ Ipratropium (DuoNeb 0.5-3(2.5)mg/3ml) 3 ml Q4H PRN HHN Shortness of Breath 08/24/16 06:43 08/29/16 06:42 Amlodipine Besylate (Norvasc) 10 mg DAILY ORAL 08/24/16 09:00 09/23/16 08:59 08/24/16 09:13 Aspirin (ASA) 162 mg DAILY ORAL 08/24/16 09:00 09/23/16 08:59 08/24/16 09:13 Atorvastatin Calcium (Lipitor) 10 mg BEDTIME ORAL 08/24/16 21:00 09/23/16 20:59 Carvedilol (Coreg) 3.125 mg EVERY 12 HOURS ORAL 08/24/16 09:00 09/23/16 08:59 08/24/16 09:13 Dextrose (Dextrose 50%) STAT PRN IV Hypoglycemia 08/24/16 06:40 09/23/16 06:39 Enalaprilat (Vasotec) 2.5 mg Q6H PRN IV SBP>160 mmHg 08/24/16 06:40 09/23/16 06:39 Furosemide (Lasix) 40 mg EVERY 8 HOURS IV 08/24/16 14:00 09/23/16 13:59 Heparin Sodium (Porcine) (Heparin 5000 units/ml) 5,000 units EVERY 8 HOURS SUBQ 08/24/16 14:00 09/23/16 13:59 Insulin Aspart (NovoLOG) BEFORE MEALS AND HS SUBQ 08/24/16 11:30 09/23/16 11:29 Lamotrigine (LaMICtal) 100 mg Q12HR ORAL 08/24/16 09:00 09/23/16 08:59 08/24/16 09:13 Morphine Sulfate (Morphine Sulfate) 2 mg Q4H PRN IVP Severe Pain (Pain Scale 7-10) 08/24/16 06:43 08/31/16 06:42 Nitroglycerin (Ntg) 0.4 mg Q5MIN X 3 DOSES PRN SL Prn Chest Pain 08/24/16 06:15 09/23/16 06:14 Ondansetron HCl (Zofran) 4 mg Q6H PRN IVP Nausea & Vomiting 08/24/16 06:43 09/23/16 06:42 Polyethylene Glycol (Miralax) 17 gm DAILYPRN PRN ORAL Constipation 08/24/16 06:44 09/23/16 06:43 Temazepam (Restoril) 15 mg HSPRN PRN ORAL Insomnia 08/24/16 06:44 08/31/16 06:43 JORGE CHARLTON August 24, 2016 13:03
--- NOTE | 2016-08-24 14:09 | General Progress Note ---
Assessment/Plan Problem List: (1) Edema ICD Codes: R60.9 - Edema, unspecified SNOMED: 196698140, 262772327 (2) CHF (congestive heart failure) ICD Codes: I50.9 - Heart failure, unspecified SNOMED: 37560639 (3) SOB (shortness of breath) ICD Codes: R06.02 - Shortness of breath SNOMED: 902966444 (4) Hyperkalemia ICD Codes: E87.5 - Hyperkalemia SNOMED: 15885116 (5) ISABEL (acute kidney injury) ICD Codes: N17.9 - Acute kidney failure, unspecified SNOMED: 19844402 (6) Morbid obesity ICD Codes: E66.01 - Morbid (severe) obesity due to excess calories SNOMED: 673293372, 35022465320633 (7) Chest pain ICD Codes: R07.9 - Chest pain, unspecified SNOMED: 86032138 Qualifiers: Qualified Codes: R07.9 - Chest pain, unspecified Status: stable, progressing, tolerating diet Assessment/Plan ot pt diet o2 pulm tx psyc tx cbc bmp in am Subjective Constitutional: Reports: weakness Allergies: Coded Allergies: No Known Allergies (Unverified , 08/23/16) All Systems: reviewed and negative except above Subjective calm sleepy in bed Objective Last 24 Hour Vital Signs Date Time Temp Pulse Resp B/P Pulse Ox O2 Delivery O2 Flow Rate FiO2 08/24/16 12:01 97.5 90 18 141/60 93 Room Air 08/24/16 09:13 92 145/74 08/24/16 09:13 92 145/74 08/24/16 07:59 97.2 92 18 145/74 95 Room Air 08/23/16 19:30 80 18 Room Air 21 08/23/16 15:49 97.7 89 20 144/69 95 Room Air 08/23/16 15:11 77 18 Room Air Intake and Output 08/23/16 08/24/16 19:00 07:00 Intake Total 240 ml Balance 240 ml Intake Oral 240 ml # Voids 2 2 Laboratory Tests 08/24/16 06:06: Urine Creatinine 37.0 08/24/16 06:07: Urine Color Pale yellow, Urine Appearance Clear, Urine pH 6, Urine Specific [place] 1.010, Urine Protein 3+H, Urine Glucose (UA) Negative, Urine Ketones Negative, Urine Occult Blood Negative, Urine Nitrite Negative, Urine Bilirubin Negative, Urine Urobilinogen Normal, Urine Leukocyte Esterase Negative, Urine RBC 0-2, Urine WBC 0-2, Urine Squamous Epithelial Cells Few, Urine Bacteria Few , Urine Eosinophils None seen, Urine Osmolality [Pending], Urine Random Creatinine [Pending], Urine Random Microalbumin [Pending], Urine Random Total Protein 115, Urine Random Sodium 74, Urine Random Chloride 60, Urine Microalbumin/Creatinine Ratio [Pending], Urine Potassium Timed 14 08/24/16 06:25: White Blood Count 10.7, Red Blood Count 3.84L, Hemoglobin 9.7L, Hematocrit 30.4L , Mean Corpuscular Volume 79L, Mean Corpuscular Hemoglobin 25.4L, Mean Corpuscular Hemoglobin Concent 32.1, Red Cell Distribution Width 17.1H, Platelet Count 273, Mean Platelet Volume 5.7L, Neutrophils (%) (Auto) , Lymphocytes (%) (Auto) , Monocytes (%) (Auto) , Eosinophils (%) (Auto) , Basophils (%) (Auto) , Differential Total Cells Counted 100, Neutrophils % ( Manual) 82H, Lymphocytes % (Manual) 12L, Monocytes % (Manual) 6, Eosinophils % ( Manual) 0, Basophils % (Manual) 0, Band Neutrophils 0, Platelet Estimate Adequate, Platelet Morphology Normal, Anisocytosis 1+, Microcytosis 1+, Erythrocyte Sedimentation Rate 50H, Reticulocyte Count 1.6, Prothrombin Time 10.5, Prothromb Time International Ratio 1.0, Activated Partial Thromboplast Time 35H, Sodium Level 142, Potassium Level 4.9, Chloride Level 104, Carbon Dioxide Level 22, Anion Gap 16H, Blood Urea Nitrogen 29H, Creatinine 2.3H, Estimat Glomerular Filtration Rate , Glucose Level 76, Calcium Level 9.4, Iron Level 31L, Total Iron Binding Capacity 286, Percent Iron Saturation 11L, Unsaturated Iron Binding 255, Lactate Dehydrogenase [Pending], Troponin I < 0.30 , C-Reactive Protein, Quantitative 1.8H, Triglycerides Level 67, Cholesterol Level 182, LDL Cholesterol 90, HDL Cholesterol 79H, Cholesterol/HDL Ratio 2.3L, Carcinoembryonic Antigen 1.9, Vitamin B12 Level 864, Folate [Pending], Thyroid Stimulating Hormone (TSH) 2.940 Height (Feet): 4 Height (Inches): 10.00 Weight (Pounds): 208 General Appearance: lethargic EENT: normal ENT inspection Neck: normal alignment Cardiovascular: normal peripheral pulses, normal rate, regular rhythm Respiratory/Chest: chest wall non-tender, lungs clear, decreased breath sounds Abdomen: normal bowel sounds, non tender, soft Extremities: normal inspection Edema: 1+ Arm (L), 1+ Arm (R), 1+ Leg (L), 1+ Leg (R), 1+ Pedal (L), 1+ Pedal ( R), 1+ Generalized Edema: trace edema Neurologic: responsive, motor weakness Skin: normal pigmentation, warm/dry ROSALES PHELPS August 24, 2016 14:09
[2016-08-24] MEDS: Furosemide 40mg tab ORAL SCH ×2 (14:41→22:00)
--- NOTE | 2016-08-24 15:37 | Cardiology Report ---
APPROVED REPORT EXAM: Two-dimensional and M-mode echocardiogram with Doppler and color Doppler. INDICATION Left Ventricular Function M-Mode DIMENSIONS IVSd0.9 (0.7-1.1cm)Left Atrium (MM)3.7 (1.6-4.0cm) LVDd5.4 (3.5-5.6cm)Aortic Root2.4 (2.0-3.7cm) PWd0.8 (0.7-1.1cm)Aortic Cusp Exc.1.8 (1.5-2.0cm) LVDs2.1 (2.5-4.0cm) PWs1.7 cm Normal left ventricular chamber size, systolic function and wall motion. Left ventricular ejection fraction estimated to be 55 %. No evidence of ventricular hypertrophy. Trace pericardial effusion. All other cardiac chamber sizes are within normal limits. Mild focal aortic valve sclerosis with adequate cusp excursion. Mildly thickened mitral valve leaflets with normal excursion. Mild mitral annulus and aortic root calcification. Normal pulmonic valve structure. Normal tricuspid valve structure. IVC dilated at 2.3 cm with physiologic collapse. A color flow and spectral Doppler study was performed and revealed: Trace aortic regurgitation. Mild to moderate mitral regurgitation. Mitral diastolic velocities suggest reduced left ventricular relaxation (Grade I). Mild tricuspid regurgitation. Tricuspid systolic velocities suggests peak right ventricular systolic pressure of 69 mmHg, consistent with severe pulmonary hypertension. Trace pulmonic regurgitation present.
[2016-08-24 15:55] VITALS: BP 135/66
--- NOTE | 2016-08-24 16:33 | Diagnostic Imaging Report ---
Indication: Abnormal renal function tests, hypertension, diabetes Technique: Grayscale and duplex images of the kidneys, retroperitoneum, and bladder were obtained. Comparison:None Findings: Right kidney measures 10.3 cm in length. Left kidney measures 9.8 cm in length. Both kidneys demonstrate increased echogenicity. No hydronephrosis. There is a 3.6 cm cyst coming off of the left kidney. Normal inferior vena cava. Bladder is normal. Impression: Negative for hydronephrosis Echogenic bilateral kidneys, consistent with medical renal disease Incidental finding of left renal cyst.
--- NOTE | 2016-08-24 16:55 | Cardiology Report ---
APPROVED REPORT EKG Measurement Heart [id number] Normal sinus rhythm Cannot rule out Anterior infarct, age undetermined Abnormal ECG
--- NOTE | 2016-08-24 19:22 | Cardiology Progress Note ---
Assessment/Plan Assessment/Plan 1. Dyspnea, ? hypervolemia due to CKD, echo reveals normal LV systolic function with LVEF at 55%, there is no evidence of rise in intracardiac filling pressure. 2. HTN, increase coreg to 6.25mg po bid 3. DM 4. CKD Subjective Subjective Transferred to the med-surgical floor. No cardiac events. Objective Last 24 Hour Vital Signs Date Time Temp Pulse Resp B/P Pulse Ox O2 Delivery O2 Flow Rate FiO2 08/24/16 15:55 96.7 85 18 135/66 92 Room Air 08/24/16 12:01 97.5 90 18 141/60 93 Room Air 08/24/16 09:13 92 145/74 08/24/16 09:13 92 145/74 08/24/16 07:59 97.2 92 18 145/74 95 Room Air 08/23/16 19:30 80 18 Room Air 21 Intake and Output 08/23/16 08/24/16 19:00 07:00 Intake Total 240 ml Balance 240 ml Intake Oral 240 ml # Voids 2 2 Laboratory Tests Test 08/24/16 06:06 08/24/16 06:07 08/24/16 06:25 Urine Creatinine 37.0 mg/dL Urine Color Pale yellow Urine Appearance Clear Urine pH 6 (4.5-8.0) Urine Specific [place] 1.010 (1.005-1.035) Urine Protein 3+ (NEGATIVE) H Urine Glucose (UA) Negative (NEGATIVE) Urine Ketones Negative (NEGATIVE) Urine Occult Blood Negative (NEGATIVE) Urine Nitrite Negative (NEGATIVE) Urine Bilirubin Negative (NEGATIVE) Urine Urobilinogen Normal MG/DL (0.0-1.0) Urine Leukocyte Esterase Negative (NEGATIVE) Urine RBC 0-2 /HPF (0 - 2) Urine WBC 0-2 /HPF (0 - 2) Urine Squamous Epithelial Cells Few /LPF (NONE/OCC) Urine Bacteria Few /HPF (NONE) Urine Eosinophils None seen Urine Osmolality Pending Urine Random Creatinine Pending Urine Random Microalbumin Pending Urine Random Total Protein 115 mg/dL Urine Random Sodium 74 mmol/L Urine Random Chloride 60 mmol/L Urine Microalbumin/Creatinine Ratio Pending Urine Potassium Timed 14 mmol/L White Blood Count 10.7 K/UL (4.8-10.8) Red Blood Count 3.84 M/UL (4.20-5.40) L Hemoglobin 9.7 G/DL (12.0-16.0) L Hematocrit 30.4 % (37.0-47.0) L Mean Corpuscular Volume 79 FL (80-99) L Mean Corpuscular Hemoglobin 25.4 PG (27.0-31.0) L Mean Corpuscular Hemoglobin Concent 32.1 G/DL (32.0-36.0) Red Cell Distribution Width 17.1 % (11.6-14.8) H Platelet Count 273 K/UL (150-450) Mean Platelet Volume 5.7 FL (6.5-10.1) L Neutrophils (%) (Auto) % (45.0-75.0) Lymphocytes (%) (Auto) % (20.0-45.0) Monocytes (%) (Auto) % (1.0-10.0) Eosinophils (%) (Auto) % (0.0-3.0) Basophils (%) (Auto) % (0.0-2.0) Differential Total Cells Counted 100 Neutrophils % (Manual) 82 % (45-75) H Lymphocytes % (Manual) 12 % (20-45) L Monocytes % (Manual) 6 % (1-10) Eosinophils % (Manual) 0 % (0-3) Basophils % (Manual) 0 % (0-2) Band Neutrophils 0 % (0-8) Platelet Estimate Adequate Platelet Morphology Normal Anisocytosis 1+ Microcytosis 1+ Erythrocyte Sedimentation Rate 50 MM/HR (0-30) H Reticulocyte Count 1.6 % (0.0-2.0) Prothrombin Time 10.5 SEC (9.30-11.50) Prothromb Time International Ratio 1.0 (0.9-1.1) Activated Partial Thromboplast Time 35 SEC (23-33) H Sodium Level 142 mEQ/L (135-145) Potassium Level 4.9 mEQ/L (3.4-4.9) Chloride Level 104 mEQ/L (98-107) Carbon Dioxide Level 22 mEQ/L (20-30) Anion Gap 16 (5-15) H Blood Urea Nitrogen 29 mg/dL (7-23) H Creatinine 2.3 mg/dL (0.5-0.9) H Estimat Glomerular Filtration Rate mL/min (>60) Glucose Level 76 mg/dL (74-106) Calcium Level 9.4 mg/dL (8.6-10.2) Iron Level 31 ug/dL (37-145) L Total Iron Binding Capacity 286 ug/dL (250-400) Percent Iron Saturation 11 % (15-50) L Unsaturated Iron Binding 255 ug/dL (112-346) Lactate Dehydrogenase Pending Troponin I < 0.30 ng/mL (<=0.30) C-Reactive Protein, Quantitative 1.8 mg/dL (< 0.5) H Triglycerides Level 67 mg/dL (< 150) Cholesterol Level 182 mg/dL (< 200) LDL Cholesterol 90 mg/dL (60-99) HDL Cholesterol 79 mg/dL (> 60) H Cholesterol/HDL Ratio 2.3 (3.3-4.4) L Carcinoembryonic Antigen 1.9 ng/mL Vitamin B12 Level 864 pg/mL (211-946) Folate Pending Thyroid Stimulating Hormone (TSH) 2.940 uIU/mL (0.300-4.500) Objective HEENT: Atraumatic, normocephalic, Extraocular movement are intact. Pupils are reactive to light and accommodation. NECK: No JVP, no carotid bruit, carotid upstroke 2+ B/L LUNGS: Bilateral crackles and decreased breathing sound on the both sides. CARDIAC: Regular rate and rhythm. Normal S1 and S2. No murmur, gallops or rubs. ABDOMEN: Soft, nontender, and nondistended, no HSM, + BS EXTREMITIES: 2+ edema. No clubbing. No cyanosis. KHALIF RAY August 24, 2016 19:22
[2016-08-24 20:00] VITALS: BP 124/57
--- NOTE | 2016-08-24 20:21 | Nephrology Progress Note ---
Assessment/Plan Assessment 1. Mild hyperkalemia. 2. Acute renal failure. 3. Chronic kidney disease due to diabetic nephropathy versus hypertensive nephrosclerosis with nephrotic range proteinuria 4. Lower-extremity edema, possibility are including congestive heart failure versus the patient on chronically on Norvasc, which could cause vasodilation and lower extremity edema. Plan plan to check for other possibility of causes of proteinuria although pt found to have small and echogenic kidney on us of kidney low k diet monitoring electrolyte avoid NSAID check pth for early MARY BETH Subjective Constitutional: Reports: malaise HEENT: Reports: no symptoms Genitourinary: Reports: no symptoms Neurologic/Psychiatric: Reports: no symptoms Subjective alert and wake sob has lower ext swelling Objective Objective Last 24 Hour Vital Signs Date Time Temp Pulse Resp B/P Pulse Ox O2 Delivery O2 Flow Rate FiO2 08/24/16 15:55 96.7 85 18 135/66 92 Room Air 08/24/16 12:01 97.5 90 18 141/60 93 Room Air 08/24/16 09:13 92 145/74 08/24/16 09:13 92 145/74 08/24/16 07:59 97.2 92 18 145/74 95 Room Air Intake and Output 08/23/16 08/24/16 19:00 07:00 Intake Total 240 ml Balance 240 ml Intake Oral 240 ml # Voids 2 2 Laboratory Tests 08/24/16 06:06: Urine Creatinine 37.0 08/24/16 06:07: Urine Color Pale yellow, Urine Appearance Clear, Urine pH 6, Urine Specific [place] 1.010, Urine Protein 3+H, Urine Glucose (UA) Negative, Urine Ketones Negative, Urine Occult Blood Negative, Urine Nitrite Negative, Urine Bilirubin Negative, Urine Urobilinogen Normal, Urine Leukocyte Esterase Negative, Urine RBC 0-2, Urine WBC 0-2, Urine Squamous Epithelial Cells Few, Urine Bacteria Few , Urine Eosinophils None seen, Urine Osmolality [Pending], Urine Random Creatinine [Pending], Urine Random Microalbumin [Pending], Urine Random Total Protein 115, Urine Random Sodium 74, Urine Random Chloride 60, Urine Microalbumin/Creatinine Ratio [Pending], Urine Potassium Timed 14 08/24/16 06:25: White Blood Count 10.7, Red Blood Count 3.84L, Hemoglobin 9.7L, Hematocrit 30.4L , Mean Corpuscular Volume 79L, Mean Corpuscular Hemoglobin 25.4L, Mean Corpuscular Hemoglobin Concent 32.1, Red Cell Distribution Width 17.1H, Platelet Count 273, Mean Platelet Volume 5.7L, Neutrophils (%) (Auto) , Lymphocytes (%) (Auto) , Monocytes (%) (Auto) , Eosinophils (%) (Auto) , Basophils (%) (Auto) , Differential Total Cells Counted 100, Neutrophils % ( Manual) 82H, Lymphocytes % (Manual) 12L, Monocytes % (Manual) 6, Eosinophils % ( Manual) 0, Basophils % (Manual) 0, Band Neutrophils 0, Platelet Estimate Adequate, Platelet Morphology Normal, Anisocytosis 1+, Microcytosis 1+, Erythrocyte Sedimentation Rate 50H, Reticulocyte Count 1.6, Prothrombin Time 10.5, Prothromb Time International Ratio 1.0, Activated Partial Thromboplast Time 35H, Sodium Level 142, Potassium Level 4.9, Chloride Level 104, Carbon Dioxide Level 22, Anion Gap 16H, Blood Urea Nitrogen 29H, Creatinine 2.3H, Estimat Glomerular Filtration Rate , Glucose Level 76, Calcium Level 9.4, Iron Level 31L, Total Iron Binding Capacity 286, Percent Iron Saturation 11L, Unsaturated Iron Binding 255, Lactate Dehydrogenase [Pending], Troponin I < 0.30 , C-Reactive Protein, Quantitative 1.8H, Triglycerides Level 67, Cholesterol Level 182, LDL Cholesterol 90, HDL Cholesterol 79H, Cholesterol/HDL Ratio 2.3L, Carcinoembryonic Antigen 1.9, Vitamin B12 Level 864, Folate [Pending], Thyroid Stimulating Hormone (TSH) 2.940 Height (Feet): 4 Height (Inches): 10.00 Weight (Pounds): 208 Objective HEAD AND NECK: No JVP. No LAD. No thyromegaly. Extraocular movement are intact. Pupils are reactive to light and accommodation. LUNGS: Bilateral crackles and decreased breathing sound on the both sides. CARDIAC: Regular rate and rhythm. S1 and S2. No murmur. No rub. ABDOMEN: Soft, nontender, and nondistended. EXTREMITIES: A 3+ edema. No clubbing. No cyanosis. CRISTEL VALENCIA August 24, 2016 20:21
--- NOTE | 2016-08-24 21:00 | Consultation ---
DATE OF CONSULTATION: 08/23/2016 CARDIOLOGY CONSULTATION: REFERRING PHYSICIAN: Emir Ragland D.O. REASON FOR CONSULTATION: Management of congestive heart failure. HISTORY OF PRESENT ILLNESS: The patient is a very unfortunate 76-year-old lady who presented to the hospital with four days progressive worsening shortness of breath at night time, improved with sitting up. She states that she uses one pillow for sleep. She has also noticed decrease in exercise tolerance and dyspnea on exertion with ambulation. She uses a wheelchair at residential facility. She also complains of increase in weight. Cardiology consultation was made at request of Dr. Ragland for management assessment of possible congestive heart failure. PAST MEDICAL HISTORY: 1. Diabetes mellitus. 2. Diabetic neuropathy. 3. Hypertension. 4. Morbid obesity. 5. Bipolar disorder. 6. Schizophrenia. 7. COPD. PAST SURGICAL HISTORY: None. MEDICATIONS: At the residential [facility] include acetaminophen 650 mg p.o. q.4 hours p.r.n. pain, Norvasc 10 mg p.o. daily, aspirin 81 mg p.o. daily, Lipitor 10 mg p.o. nightly, Colace 250 mg once daily, ferrous sulfate 325 mg once daily, Lipitor 2.5 mg p.o. daily, Lamictal 100 mg p.o. twice daily, Tradjenta 5 mg p.o. daily, milk of magnesia 30 mL p.o. q.4 h. p.r.n. GI distress as well as constipation, multivitamin one tablet p.o. daily, Zofran 8 mg p.o. q.6 h. p.r.n. nausea and vomiting, Invega Sustenna 156 mg IM, pravastatin 10 mg p.o. nightly, Nephro-Sylvester one tablet p.o. daily, and Geodon 60 mg p.o. daily. ALLERGIES: No known drug allergies. SOCIAL HISTORY: Long history of tobacco in the past. There is no current history of tobacco, alcohol, or illicit drug use. FAMILY HISTORY: No premature coronary artery disease in the first-degree relatives. REVIEW OF SYSTEMS: HEENT: Denies any headache, diplopia, or blurred vision. Constitutional: Complains of generalized weakness, but no fever, chills, or night sweats. She is also complaining of weight gain. CVS: Denies any chest pain, but dyspnea on exertion, paroxysmal nocturnal dyspnea, orthopnea, and leg swelling. Pulmonary: Denies any cough, wheezing or hemoptysis. Gastrointestinal: Denies any nausea, vomiting, diarrhea, constipation, abdominal pain, or GI bleed. Genitourinary: Denies any hematuria, dysuria, or incontinence. Neurologic: Denies any motor dysfunction, sensory deficit, or altered speech. PHYSICAL EXAMINATION: VITAL SIGNS: Blood pressure at time of arrival to the emergency department was 143/61, respirations 16, pulse of 92, temperature 97.7 degrees Fahrenheit, and O2 saturation of 95% on room air. GENERAL: The patient is a very unfortunate 76-year-old female, who appears to be somewhat confused and not quite cooperating with answers. HEENT: Atraumatic and normocephalic. Anicteric. Pupils are equal, round, and reactive to light and accommodation. Extraocular muscles intact. NECK: JVP less than 5 cm. No carotid bruits. Carotid upstrokes 2+ bilaterally. CVS: Normal S1 and S2. Regular rate and rhythm. A 2/6 mid systolic murmur at the left sternal border. PMI is at the fourth intercostal space in the midclavicular line. LUNGS: Decreased breath sounds at both bases. Some scattered crackles. ABDOMEN: Soft, nontender, and nondistended. No hepatosplenomegaly. Positive bowel sounds. EXTREMITIES: There is bilateral pitting edema about 2+ bilaterally right more than left. LABORATORY FINDINGS: WBC 10.7, hemoglobin 9.3, hematocrit 30.3, and platelet count 250,000. Sodium 140, potassium 5.1, chloride 103, bicarbonate 19, BUN of 35, creatinine 2.5, and glucose 111. Troponin I x2 negative. ProBNP was 261. INR is 1.0. Urine toxicology was negative. A 12-lead electrocardiogram shows sinus rhythm, heart rate 85 with no evidence of atrophy, no evidence of acute ischemic features. Chest x-ray shows cardiomegaly with mild pulmonary venous congestion. ASSESSMENT AND PLAN: The patient is a very unfortunate 76-year-old female, seen in Cardiology consultation at request of Dr. Ragland, 1. Dyspnea in view of the chest x-ray findings, physical examination and BNP level the patient may have acute heart failure. This could be either systolic and diastolic and will be determined by the 2D echocardiography, which has been ordered. Further diagnostic and therapeutic decision will be based on the results of 2D echocardiography. In the meantime, I would agree with continuation of intravenous diuretics and tight blood pressure control. 2. Acute myocardial infarction is ruled out two negative cardiac enzymes. 3. History of hypertension. 4. History of diabetes mellitus. The patient should be on aspirin and atorvastatin. We will also obtain a lipid panel in the morning 5. History of chronic obstructive pulmonary disease. 6. History of gastroesophageal reflux disease. 7. History of bipolar schizophrenia. 8. History of iron deficiency anemia. 9. Renal failure. Nephrology followup. I would like to thank, Dr. Ragland, for allowing me to participate in the care of this patient. Anand Burris M.D. DR: Rashaad JOB#: [id number] CC:
[2016-08-25] VITALS: BP 126/60
--- NOTE | 2016-08-25 02:15 | Consultation ---
DATE OF CONSULTATION: 08/23/2016 [facility]: Alec Wright M.D. TREATING ATTENDING PHYSICIAN: Emir Ragland D.O. HISTORY OF PRESENT ILLNESS: This patient is a 76-year-old female patient. The patient has been admitted to the hospital for chest pain and shortness of breath as well as encephalopathy. The patient is from [facility]. The patient has a history of anxiety, depression, and encephalopathy. The patient was slightly irritable, agitated, felt disoriented, and confused. Upon assessment, the patient denies suicidal or homicidal thoughts of ideation. The patient denies auditory or visual hallucinations . The patient . The patient confusion and disorientation. PAST MEDICAL HISTORY: History of congestive heart failure, encephalopathy, edema, and thyroid problems. ALLERGIES: The patient has no known drug allergies. SUBSTANCE USE HISTORY: The patient denies any history of alcohol use or illicit substance use. The patient states she does smoke cigarettes. SOCIAL HISTORY: The patient is a 76-year-old female patient from [facility], financially sustained through Medicare and [employer]. MENTAL STATUS EXAMINATION: The patient is alert and oriented x2 to person and place. Her mood is anxious. Affect is irritable. Thought process, disorganized. Thought content, confused. The patient has poor attention and concentration. Poor insight, judgment, and impulse control. provided the patient with physical therapy and reality orientation. Encouraging the patient to participate . DIAGNOSES: [place] I Schizoaffective disorder, bipolar type. [place] II Deferred. [place] III Per History and Physical. [place] IV . PLAN: This clinician assessed the patient and provided the patient with supportive psychotherapy and reality orientation. Encouraging the patient to participate in treatment. Continue with medication management and behavioral management. This clinician has reviewed the patient's chart and discussed the treatment with the nursing staff. Alec Wright PsyD. DR: EMMA JOB#: [id number] CC:
[2016-08-25 04:00] VITALS: BP 133/58
[2016-08-25] MEDS: Furosemide 40mg tab ORAL SCH ×3 (06:09→22:00)
[2016-08-25] MEDS: Heparin 5000 units/ml inj SUBQ SCH ×3 (06:11→22:00)
[2016-08-25] MEDS: NovoLOG Insulin Flexpen SUBQ SCH ×4 (06:12→20:57)
[2016-08-25 06:59] LABS: BASOPHILS % (AUTO) 0.4 % (0.0-2.0); EOSINOPHILS % (AUTO) 1.9 % (0.0-3.0); LYMPHOCYTES % (AUTO) 15.2 % (20.0-45.0); MEAN CORPUSCULAR HGB CONC 31.2 G/DL (32.0-36.0); MEAN CORPUSCULAR VOLUME 80 FL (80-99); MEAN PLATELET VOLUME 5.6 FL (6.5-10.1); MONOCYTES % (AUTO) 6.7 % (1.0-10.0); NEUTROPHILS % (AUTO) 75.8 % (45.0-75.0); PLATELET COUNT 261 K/UL (150-450); RED BLOOD COUNT 3.67 M/UL (4.20-5.40); RED CELL DISTRIBUTION WIDTH 17.3 % (11.6-14.8); WHITE BLOOD COUNT 9.4 K/UL (4.8-10.8)
[2016-08-25 07:54] LABS: ANION GAP 19 (5-15); CALCIUM 8.8 mg/dL (8.6-10.2); CARBON DIOXIDE 21 mEQ/L (20-30); CHLORIDE 101 mEQ/L (98-107); CREATININE 2.6 mg/dL (0.5-0.9); HEMOLYSIS 2; POTASSIUM 4.8 mEQ/L (3.4-4.9); SODIUM 141 mEQ/L (135-145)
[2016-08-25 08:00] VITALS: BP 139/72
[2016-08-25 08:10] LABS: TROPONIN I < 0.30 ng/mL (<=0.30)
[2016-08-25] MEDS: Aspirin Baby 81mg ORAL SCH (08:44)
[2016-08-25 12:00] VITALS: BP 115/50
--- NOTE | 2016-08-25 13:37 | General Progress Note ---
Assessment/Plan Problem List: (1) Edema ICD Codes: R60.9 - Edema, unspecified SNOMED: 443600672, 926142850 (2) CHF (congestive heart failure) ICD Codes: I50.9 - Heart failure, unspecified SNOMED: 62483648 (3) SOB (shortness of breath) ICD Codes: R06.02 - Shortness of breath SNOMED: 263854125 (4) Hyperkalemia ICD Codes: E87.5 - Hyperkalemia SNOMED: 29359799 (5) ISABEL (acute kidney injury) ICD Codes: N17.9 - Acute kidney failure, unspecified SNOMED: 01186311 (6) Morbid obesity ICD Codes: E66.01 - Morbid (severe) obesity due to excess calories SNOMED: 553677501, 71444103293600 (7) Chest pain ICD Codes: R07.9 - Chest pain, unspecified SNOMED: 77239937 Qualifiers: Qualified Codes: R07.9 - Chest pain, unspecified Status: stable, progressing, tolerating diet Assessment/Plan ot pt diet o2 pulm tx psyc tx cbc bmp am dc plan Subjective Constitutional: Reports: weakness Allergies: Coded Allergies: No Known Allergies (Unverified , 08/23/16) All Systems: reviewed and negative except above Subjective calm sleepy in wc Objective Last 24 Hour Vital Signs Date Time Temp Pulse Resp B/P Pulse Ox O2 Delivery O2 Flow Rate FiO2 08/25/16 12:00 97.9 84 18 115/50 97 Room Air 08/25/16 08:44 96 139/72 08/25/16 08:43 96 139/72 08/25/16 08:00 97.2 96 20 139/72 96 Room Air 08/25/16 06:37 88 18 Room Air 08/25/16 04:00 96.8 88 20 133/58 93 Room Air 08/25/16 00:00 98.4 81 20 126/60 93 Room Air 08/24/16 20:00 97.3 90 20 124/57 92 Room Air 08/24/16 19:30 76 18 Room Air 21 08/24/16 15:55 96.7 85 18 135/66 92 Room Air Intake and Output 08/24/16 08/25/16 19:00 07:00 Intake Total 960 ml 650 ml Balance 960 ml 650 ml Intake Oral 960 ml 650 ml # Voids 4 3 # Bowel Movements 1 Laboratory Tests 08/25/16 05:45: White Blood Count 9.4, Red Blood Count 3.67L, Hemoglobin 9.2L, Hematocrit 29.5L , Mean Corpuscular Volume 80, Mean Corpuscular Hemoglobin 25.0L, Mean Corpuscular Hemoglobin Concent 31.2L, Red Cell Distribution Width 17.3H, Platelet Count 261, Mean Platelet Volume 5.6L, Neutrophils (%) (Auto) 75.8H, Lymphocytes (%) (Auto) 15.2L, Monocytes (%) (Auto) 6.7, Eosinophils (%) (Auto) 1.9, Basophils (%) (Auto) 0.4, Troponin I < 0.30, c-ANCA Titer [Pending], p- ANCA Titer [Pending], Anti-Double Strand DNA Antibody [Pending], Anti- Glomerular Basement Memb Ab [Pending], Complement C3 [Pending], Complement C4 [ Pending], Total Complement (CH50) [Pending] 08/25/16 06:35: Sodium Level 141, Potassium Level 4.8, Chloride Level 101, Carbon Dioxide Level 21, Anion Gap 19H, Blood Urea Nitrogen 38H, Creatinine 2.6H, Estimat Glomerular Filtration Rate , Glucose Level 130H, Calcium Level 8.8 Height (Feet): 4 Height (Inches): 10.00 Weight (Pounds): 201 General Appearance: confused EENT: normal ENT inspection Neck: normal alignment Cardiovascular: normal peripheral pulses, normal rate, regular rhythm Respiratory/Chest: chest wall non-tender, lungs clear, normal breath sounds Abdomen: normal bowel sounds, non tender, soft Extremities: normal inspection Edema: no edema noted Arm (L), no edema noted Arm (R), no edema noted Leg (L), no edema noted Leg (R), no edema noted Pedal (L), no edema noted Pedal (R), no edema noted Generalized Neurologic: responsive, motor weakness Skin: normal pigmentation, warm/dry ROSALES PHELPS Aug 25, 2016 13:37
[2016-08-25] MEDS ORDERED: RESTORIL15 MG ORAL ×2 (15:58→16:05)
[2016-08-25] MEDS ORDERED: MIRALAX17 G2 ORAL ×2 (15:59→16:05)
[2016-08-25] MEDS ORDERED: NITROGLYCERIN0.4 MG SL ×2 (16:02→16:06)
[2016-08-25] MEDS ORDERED: NOVOLIN R100 UNIT/1 SUBQ ×2 (16:04→16:06)
[2016-08-25 16:42] VITALS: BP 130/68
--- NOTE | 2016-08-25 17:55 | Pulmonology Progress Note ---
Assessment/Plan Problems: (1) Hyperkalemia (2) ISABEL (acute kidney injury) (3) Chest pain (4) Morbid obesity Assessment/Plan improving walking around labs better echo results noted, EF of 55% venous doppler negative. all notes reviewed Subjective Allergies: Coded Allergies: No Known Allergies (Unverified , 08/23/16) Objective Last 24 Hour Vital Signs Date Time Temp Pulse Resp B/P Pulse Ox O2 Delivery O2 Flow Rate FiO2 08/25/16 16:42 97.1 84 20 130/68 95 Room Air 08/25/16 12:00 97.9 84 18 115/50 97 Room Air 08/25/16 08:44 96 139/72 08/25/16 08:43 96 139/72 08/25/16 08:00 97.2 96 20 139/72 96 Room Air 08/25/16 06:37 88 18 Room Air 08/25/16 04:00 96.8 88 20 133/58 93 Room Air 08/25/16 00:00 98.4 81 20 126/60 93 Room Air 08/24/16 20:00 97.3 90 20 124/57 92 Room Air 08/24/16 19:30 76 18 Room Air 21 Intake and Output 08/24/16 08/25/16 19:00 07:00 Intake Total 960 ml 650 ml Balance 960 ml 650 ml Intake Oral 960 ml 650 ml # Voids 4 3 # Bowel Movements 1 Microbiology Date/Time Source Procedure Growth Status 08/23/16 04:30 Nasal Nares MRSA Culture - Final NO METHICILLIN RESISTANT STAPH AUREUS... Complete 08/23/16 04:30 Rectum VRE Culture - Final NO VANCOMYCIN RESISTANT ENTEROCOCCUS ... Complete Laboratory Tests 08/25/16 05:45: White Blood Count 9.4, Red Blood Count 3.67L, Hemoglobin 9.2L, Hematocrit 29.5L , Mean Corpuscular Volume 80, Mean Corpuscular Hemoglobin 25.0L, Mean Corpuscular Hemoglobin Concent 31.2L, Red Cell Distribution Width 17.3H, Platelet Count 261, Mean Platelet Volume 5.6L, Neutrophils (%) (Auto) 75.8H, Lymphocytes (%) (Auto) 15.2L, Monocytes (%) (Auto) 6.7, Eosinophils (%) (Auto) 1.9, Basophils (%) (Auto) 0.4, Troponin I < 0.30, c-ANCA Titer [Pending], p- ANCA Titer [Pending], Anti-Double Strand DNA Antibody [Pending], Anti- Glomerular Basement Memb Ab [Pending], Complement C3 [Pending], Complement C4 [ Pending], Total Complement (CH50) [Pending] 08/25/16 06:35: Sodium Level 141, Potassium Level 4.8, Chloride Level 101, Carbon Dioxide Level 21, Anion Gap 19H, Blood Urea Nitrogen 38H, Creatinine 2.6H, Estimat Glomerular Filtration Rate , Glucose Level 130H, Calcium Level 8.8 Current Medications Medications (Trade) Dose Ordered Sig/Jaclyn Route PRN Reason Start Time Stop Time Status Last Admin Dose Admin Acetaminophen (Tylenol) 650 mg Q4H PRN ORAL T>100.5 08/24/16 06:39 09/23/16 06:38 Albuterol/ Ipratropium (DuoNeb 0.5-3(2.5)mg/3ml) 3 ml Q4H PRN HHN Shortness of Breath 08/24/16 06:43 08/29/16 06:42 Amlodipine Besylate (Norvasc) 10 mg DAILY ORAL 08/24/16 09:00 09/23/16 08:59 08/25/16 08:43 Aspirin (ASA) 162 mg DAILY ORAL 08/24/16 09:00 09/23/16 08:59 08/25/16 08:44 Atorvastatin Calcium (Lipitor) 10 mg BEDTIME ORAL 08/24/16 21:00 09/23/16 20:59 Carvedilol (Coreg) 3.125 mg EVERY 12 HOURS ORAL 08/24/16 09:00 09/23/16 08:59 08/25/16 08:44 Dextrose (Dextrose 50%) STAT PRN IV Hypoglycemia 08/24/16 06:40 09/23/16 06:39 Enalaprilat (Vasotec) 2.5 mg Q6H PRN IV SBP>160 mmHg 08/24/16 06:40 09/23/16 06:39 Furosemide (Lasix) 40 mg EVERY 8 HOURS ORAL 08/24/16 14:00 09/23/16 13:59 08/25/16 13:56 Heparin Sodium (Porcine) (Heparin 5000 units/ml) 5,000 units EVERY 8 HOURS SUBQ 08/24/16 14:00 09/23/16 13:59 08/25/16 14:00 Insulin Aspart (NovoLOG) BEFORE MEALS AND HS SUBQ 08/24/16 11:30 09/23/16 11:29 08/25/16 06:12 Lamotrigine (LaMICtal) 100 mg Q12HR ORAL 08/24/16 09:00 09/23/16 08:59 08/25/16 08:43 Morphine Sulfate (Morphine Sulfate) 2 mg Q4H PRN IVP Severe Pain (Pain Scale 7-10) 08/24/16 06:43 08/31/16 06:42 Nitroglycerin (Ntg) 0.4 mg Q5MIN X 3 DOSES PRN SL Prn Chest Pain 08/24/16 06:15 09/23/16 06:14 Ondansetron HCl (Zofran) 4 mg Q6H PRN IVP Nausea & Vomiting 08/24/16 06:43 09/23/16 06:42 Polyethylene Glycol (Miralax) 17 gm DAILYPRN PRN ORAL Constipation 08/24/16 06:44 09/23/16 06:43 Temazepam (Restoril) 15 mg HSPRN PRN ORAL Insomnia 08/24/16 06:44 08/31/16 06:43 JORGE CHARLTON Aug 25, 2016 17:55
[2016-08-25 20:00] VITALS: BP 117/53
--- NOTE | 2016-08-25 20:27 | Cardiology Progress Note ---
Assessment/Plan Assessment/Plan 1. Dyspnea, ? hypervolemia due to CKD, echo reveals normal LV systolic function with LVEF at 55%, there is no evidence of rise in intracardiac filling pressure. 2. HTN, well controlled continue coreg, amlodipine and lasix. 3. DM 4. CKD Subjective Subjective Denies any chest pain or SOB. No cardiac events. Objective Last 24 Hour Vital Signs Date Time Temp Pulse Resp B/P Pulse Ox O2 Delivery O2 Flow Rate FiO2 08/25/16 19:41 84 20 Room Air 08/25/16 16:42 97.1 84 20 130/68 95 Room Air 08/25/16 12:00 97.9 84 18 115/50 97 Room Air 08/25/16 08:44 96 139/72 08/25/16 08:43 96 139/72 08/25/16 08:00 97.2 96 20 139/72 96 Room Air 08/25/16 06:37 88 18 Room Air 08/25/16 04:00 96.8 88 20 133/58 93 Room Air 08/25/16 00:00 98.4 81 20 126/60 93 Room Air Intake and Output 08/24/16 08/25/16 19:00 07:00 Intake Total 960 ml 650 ml Balance 960 ml 650 ml Intake Oral 960 ml 650 ml # Voids 4 3 # Bowel Movements 1 2D Echo: EF 55%, mild MR, Grdae I LVDD, RVSP 69 mmHg Laboratory Tests Test 08/25/16 05:45 08/25/16 06:35 White Blood Count 9.4 K/UL (4.8-10.8) Red Blood Count 3.67 M/UL (4.20-5.40) L Hemoglobin 9.2 G/DL (12.0-16.0) L Hematocrit 29.5 % (37.0-47.0) L Mean Corpuscular Volume 80 FL (80-99) Mean Corpuscular Hemoglobin 25.0 PG (27.0-31.0) L Mean Corpuscular Hemoglobin Concent 31.2 G/DL (32.0-36.0) L Red Cell Distribution Width 17.3 % (11.6-14.8) H Platelet Count 261 K/UL (150-450) Mean Platelet Volume 5.6 FL (6.5-10.1) L Neutrophils (%) (Auto) 75.8 % (45.0-75.0) H Lymphocytes (%) (Auto) 15.2 % (20.0-45.0) L Monocytes (%) (Auto) 6.7 % (1.0-10.0) Eosinophils (%) (Auto) 1.9 % (0.0-3.0) Basophils (%) (Auto) 0.4 % (0.0-2.0) Troponin I < 0.30 ng/mL (<=0.30) c-ANCA Titer Pending p-ANCA Titer Pending Anti-Double Strand DNA Antibody Pending Anti-Glomerular Basement Memb Ab Pending Complement C3 Pending Complement C4 Pending Total Complement (CH50) Pending Sodium Level 141 mEQ/L (135-145) Potassium Level 4.8 mEQ/L (3.4-4.9) Chloride Level 101 mEQ/L (98-107) Carbon Dioxide Level 21 mEQ/L (20-30) Anion Gap 19 (5-15) H Blood Urea Nitrogen 38 mg/dL (7-23) H Creatinine 2.6 mg/dL (0.5-0.9) H Estimat Glomerular Filtration Rate mL/min (>60) Glucose Level 130 mg/dL (74-106) H Calcium Level 8.8 mg/dL (8.6-10.2) Microbiology Date/Time Source Procedure Growth Status 08/23/16 04:30 Nasal Nares MRSA Culture - Final NO METHICILLIN RESISTANT STAPH AUREUS... Complete 08/23/16 04:30 Rectum VRE Culture - Final NO VANCOMYCIN RESISTANT ENTEROCOCCUS ... Complete Objective HEENT: Atraumatic, normocephalic, Extraocular movement are intact. Pupils are reactive to light and accommodation. NECK: No JVP, no carotid bruit, carotid upstroke 2+ B/L LUNGS: Bilateral crackles and decreased breathing sound on the both sides. CARDIAC: Regular rate and rhythm. Normal S1 and S2. No murmur, gallops or rubs. ABDOMEN: Soft, nontender, and nondistended, no HSM, + BS EXTREMITIES: 2+ edema. No clubbing. No cyanosis. KHALIF RAY Aug 25, 2016 20:27
--- NOTE | 2016-08-25 21:42 | Nephrology Progress Note ---
Assessment/Plan Assessment 1. Mild hyperkalemia. 2. Acute renal failure. 3. Chronic kidney disease due to diabetic nephropathy versus hypertensive nephrosclerosis with nephrotic range proteinuria 4. Lower-extremity edema, possibility are including congestive heart failure versus the patient on chronically on Norvasc, which could cause vasodilation and lower extremity edema.nephrotic syndrome repeat urine study is pending Plan plan to check for other possibility of causes of proteinuria although pt found to have small and echogenic kidney on us of kidney low k diet monitoring electrolyte avoid NSAID check pth for early MARY BETH Subjective Constitutional: Reports: no symptoms HEENT: Reports: no symptoms Genitourinary: Reports: no symptoms Neurologic/Psychiatric: Reports: no symptoms Subjective alert and wake sob has improved Objective Objective Last 24 Hour Vital Signs Date Time Temp Pulse Resp B/P Pulse Ox O2 Delivery O2 Flow Rate FiO2 08/25/16 20:56 87 117/53 08/25/16 20:00 98.7 87 20 117/53 92 Room Air 08/25/16 19:41 84 20 Room Air 08/25/16 16:42 97.1 84 20 130/68 95 Room Air 08/25/16 12:00 97.9 84 18 115/50 97 Room Air 08/25/16 08:44 96 139/72 08/25/16 08:43 96 139/72 08/25/16 08:00 97.2 96 20 139/72 96 Room Air 08/25/16 06:37 88 18 Room Air 08/25/16 04:00 96.8 88 20 133/58 93 Room Air 08/25/16 00:00 98.4 81 20 126/60 93 Room Air Intake and Output 08/24/16 08/25/16 18:59 06:59 Intake Total 960 ml 650 ml Balance 960 ml 650 ml Intake Oral 960 ml 650 ml # Voids 4 3 # Bowel Movements 1 Laboratory Tests 08/25/16 05:45: White Blood Count 9.4, Red Blood Count 3.67L, Hemoglobin 9.2L, Hematocrit 29.5L , Mean Corpuscular Volume 80, Mean Corpuscular Hemoglobin 25.0L, Mean Corpuscular Hemoglobin Concent 31.2L, Red Cell Distribution Width 17.3H, Platelet Count 261, Mean Platelet Volume 5.6L, Neutrophils (%) (Auto) 75.8H, Lymphocytes (%) (Auto) 15.2L, Monocytes (%) (Auto) 6.7, Eosinophils (%) (Auto) 1.9, Basophils (%) (Auto) 0.4, Troponin I < 0.30, c-ANCA Titer [Pending], p- ANCA Titer [Pending], Anti-Double Strand DNA Antibody [Pending], Anti- Glomerular Basement Memb Ab [Pending], Complement C3 [Pending], Complement C4 [ Pending], Total Complement (CH50) [Pending] 08/25/16 06:35: Sodium Level 141, Potassium Level 4.8, Chloride Level 101, Carbon Dioxide Level 21, Anion Gap 19H, Blood Urea Nitrogen 38H, Creatinine 2.6H, Estimat Glomerular Filtration Rate , Glucose Level 130H, Calcium Level 8.8 Height (Feet): 4 Height (Inches): 10.00 Weight (Pounds): 201 Objective HEAD AND NECK: No JVP. No LAD. No thyromegaly. Extraocular movement are intact. Pupils are reactive to light and accommodation. LUNGS: Bilateral crackles and decreased breathing sound on the both sides. CARDIAC: Regular rate and rhythm. S1 and S2. No murmur. No rub. ABDOMEN: Soft, nontender, and nondistended. EXTREMITIES: A 3+ edema. No clubbing. No cyanosis. CRISTEL VALENCIA Aug 25, 2016 21:42
[2016-08-26] VITALS: BP 135/63
--- NOTE | 2016-08-26 01:30 | Progress Note ---
DATE: 08/24/2016 CONSULTING PHYSICIAN: Alec Wright M.D. TREATING ATTENDING PHYSICIAN: Emir Ragland D.O. SUBJECTIVE: The patient has been admitted to the hospital for encephalopathy. She is continues to have difficulty with shortness of breath and has been agitated and irritable and forgetful. Poor insight and judgment. Poor impulse control requiring hospitalization. . This clinician assessed the patient. The patient is alert and oriented x3 to person and place. Her mood is anxious. Affect is congruent. Thought process disorganized. The patient has poor attention and concentration. Poor insight and judgment and impulse control. PLAN: This clinician has assessed the patient today. The patient is receiving psychotherapy and reality orientation. Encouraging the patient to participate in treatment in milieu. Continue with medication management and behavioral management. This clinician has reviewed the patient's chart and discussed the treatment with nursing staff. Alec Wright PsyD. DR: RENETTA JOB#: [id number] CC:
--- NOTE | 2016-08-26 03:45 | Progress Note ---
DATE: 08/25/2016 PSYCHOTHERAPY CONSULTATION PROGRESS NOTE CONSULTING PHYSICIAN: Alec Wright M.D. TREATING ATTENDING PHYSICIAN: Emir Ragland D.O. HISTORY OF PRESENT ILLNESS: This is a 76-year-old female patient. The patient remains disorganized, confused, feeling anxiousm talkative. Thought . Poor insight, judgment, and impulse control. stable symptoms. PLAN: This clinician assessed the patient and provided the patient with supportive psychotherapy and reality orientation. Encouraging the patient to participate in treatment of milieu. Continue with medication management and behavioral management. This clinician has reviewed the patient's chart and discussed the treatment with the nursing staff. Alec Wright PsyD. DR: RENETTA JOB#: [id number] CC:
[2016-08-26 04:00] VITALS: BP 114/56
[2016-08-26] MEDS: Furosemide 40mg tab ORAL SCH ×2 (06:00→14:00)
[2016-08-26] MEDS: Heparin 5000 units/ml inj SUBQ SCH ×2 (06:00→14:00)
[2016-08-26] MEDS: NovoLOG Insulin Flexpen SUBQ SCH ×3 (06:22→15:40)
[2016-08-26 07:52] VITALS: BP 140/63
--- NOTE | 2016-08-26 08:00 | Pulmonology Progress Note ---
Assessment/Plan Assessment/Plan ASSESSMENT atypical chest pain dyspnea COPD CKD HTN smoker DM mild hyperkalemia- resolved morbid obesity anemia of chronic disease severe pulmonary HTN edema LE schizophrenia, bipolar type PLAN OF CARE serial troponin negative, ECG no acute ischemic changes, therefore r/o for acute SD cardio follows dyspnea likely 2 to hypervolemia from CKD O2 HHN prn no evidence of COPD exacerbation CXR with CM and mild pulmonary congestion , pro BNP 261 initially ECHO with EF 55% and RVSP of 69 c/w severe pulmonary HTN lipid panel stable diuresis, clsoely monitor I/O, renal parameters, lytes BP management with CCB and BB, optimize as needed Venous Duplex BLE negative nephro follows renal US c/w echogenic kidneys suggestive of chronic kidney disease avoid nephrotoxic low K diet renal parameters remain at baseline per nephro CKD possible 2 to diabetic nephropathy vs HTN nephrosclerosis with nephrotoxic range proteinuria BS management with SS of insulin monitor HH, at baseline, anemia of chronic renal disease PT/OT psychologist follows edema BLE possibly due to chronic Norvasc use vs due to some hypervolemia from CKD medically cleared awaiting transfer case discussed and evaluated by supervising physician Subjective Allergies: Coded Allergies: No Known Allergies (Unverified , 08/23/16) Subjective denies chest pain, cough, SOB sitting in the wheelchair awaiting for transfer Objective Last 24 Hour Vital Signs Date Time Temp Pulse Resp B/P Pulse Ox O2 Delivery O2 Flow Rate FiO2 08/26/16 04:00 99.1 87 18 114/56 89 Room Air 08/26/16 00:00 96.6 97 20 135/63 92 Room Air 08/25/16 20:56 87 117/53 08/25/16 20:00 98.7 87 20 117/53 92 Room Air 08/25/16 19:41 84 20 Room Air 08/25/16 16:42 97.1 84 20 130/68 95 Room Air 08/25/16 12:00 97.9 84 18 115/50 97 Room Air 08/25/16 08:44 96 139/72 08/25/16 08:43 96 139/72 08/25/16 08:00 97.2 96 20 139/72 96 Room Air Intake and Output 08/25/16 08/26/16 19:00 07:00 Intake Total 600 ml 1180 ml Output Total 700 ml Balance 600 ml 480 ml Intake Oral 600 ml 1180 ml Output Stool Total 700 ml # Voids 2 4 General Appearance: no acute distress, other - awake, alert, AA female , flat affect HEENT: normocephalic, atraumatic, anicteric, mucous membranes moist Respiratory/Chest: lungs clear - with moderate air entry , no respiratory distress, chest wall tender Cardiovascular: normal peripheral pulses, normal rate, no JVD Abdomen: normal bowel sounds, soft, non tender - obese Extremities: no edema Neurologic/Psychiatric: alert, responsive Current Medications Medications (Trade) Dose Ordered Sig/Jaclyn Route PRN Reason Start Time Stop Time Status Last Admin Dose Admin Acetaminophen (Tylenol) 650 mg Q4H PRN ORAL T>100.5 08/24/16 06:39 09/23/16 06:38 Albuterol/ Ipratropium (DuoNeb 0.5-3(2.5)mg/3ml) 3 ml Q4H PRN HHN Shortness of Breath 08/24/16 06:43 08/29/16 06:42 Amlodipine Besylate (Norvasc) 10 mg DAILY ORAL 08/24/16 09:00 09/23/16 08:59 08/25/16 08:43 Aspirin (ASA) 162 mg DAILY ORAL 08/24/16 09:00 09/23/16 08:59 08/25/16 08:44 Atorvastatin Calcium (Lipitor) 10 mg BEDTIME ORAL 08/24/16 21:00 09/23/16 20:59 Carvedilol (Coreg) 3.125 mg EVERY 12 HOURS ORAL 08/24/16 09:00 09/23/16 08:59 08/25/16 08:44 Dextrose (Dextrose 50%) STAT PRN IV Hypoglycemia 08/24/16 06:40 09/23/16 06:39 Enalaprilat (Vasotec) 2.5 mg Q6H PRN IV SBP>160 mmHg 08/24/16 06:40 09/23/16 06:39 Furosemide (Lasix) 40 mg EVERY 8 HOURS ORAL 08/24/16 14:00 09/23/16 13:59 08/25/16 13:56 Heparin Sodium (Porcine) (Heparin 5000 units/ml) 5,000 units EVERY 8 HOURS SUBQ 08/24/16 14:00 09/23/16 13:59 08/25/16 14:00 Insulin Aspart (NovoLOG) BEFORE MEALS AND HS SUBQ 08/24/16 11:30 09/23/16 11:29 08/25/16 06:12 Lamotrigine (LaMICtal) 100 mg Q12HR ORAL 08/24/16 09:00 09/23/16 08:59 08/25/16 08:43 Morphine Sulfate (Morphine Sulfate) 2 mg Q4H PRN IVP Severe Pain (Pain Scale 7-10) 08/24/16 06:43 08/31/16 06:42 Nitroglycerin (Ntg) 0.4 mg Q5MIN X 3 DOSES PRN SL Prn Chest Pain 08/24/16 06:15 09/23/16 06:14 Ondansetron HCl (Zofran) 4 mg Q6H PRN IVP Nausea & Vomiting 08/24/16 06:43 09/23/16 06:42 Polyethylene Glycol (Miralax) 17 gm DAILYPRN PRN ORAL Constipation 08/24/16 06:44 09/23/16 06:43 Temazepam (Restoril) 15 mg HSPRN PRN ORAL Insomnia 08/24/16 06:44 08/31/16 06:43 Leda Martinez NP (Vanchtein) Aug 26, 2016 08:00
[2016-08-26] MEDS: Aspirin Baby 81mg ORAL SCH (10:01)
[2016-08-26 10:29] LABS: BASOPHILS % (AUTO) 0.4 % (0.0-2.0); EOSINOPHILS % (AUTO) 1.6 % (0.0-3.0); LYMPHOCYTES % (AUTO) 23.5 % (20.0-45.0); MEAN CORPUSCULAR HEMOGLOBIN 24.1 PG (27.0-31.0); MEAN CORPUSCULAR HGB CONC 30.1 G/DL (32.0-36.0); MEAN CORPUSCULAR VOLUME 80 FL (80-99); MEAN PLATELET VOLUME 5.6 FL (6.5-10.1); MONOCYTES % (AUTO) 7.3 % (1.0-10.0); NEUTROPHILS % (AUTO) 67.3 % (45.0-75.0); PLATELET COUNT 275 K/UL (150-450); RED BLOOD COUNT 3.97 M/UL (4.20-5.40); RED CELL DISTRIBUTION WIDTH 16.8 % (11.6-14.8); WHITE BLOOD COUNT 8.7 K/UL (4.8-10.8)
[2016-08-26 10:50] LABS: ANION GAP 16 (5-15); CALCIUM 8.6 mg/dL (8.6-10.2); CARBON DIOXIDE 22 mEQ/L (20-30); CHLORIDE 102 mEQ/L (98-107); CREATININE 2.8 mg/dL (0.5-0.9); HEMOLYSIS 0; POTASSIUM 5.2 mEQ/L (3.4-4.9); SODIUM 140 mEQ/L (135-145)
[2016-08-26] MEDS ORDERED: Sodium Polystyrene Sulfonate 15gm Powder ORAL ONE (11:15)
[2016-08-26 11:39] VITALS: BP 119/55
--- NOTE | 2016-08-26 14:34 | General Progress Note ---
Assessment/Plan Problem List: (1) Edema ICD Codes: R60.9 - Edema, unspecified SNOMED: 935528160, 400454038 (2) CHF (congestive heart failure) ICD Codes: I50.9 - Heart failure, unspecified SNOMED: 82292695 (3) SOB (shortness of breath) ICD Codes: R06.02 - Shortness of breath SNOMED: 880579722 (4) Hyperkalemia ICD Codes: E87.5 - Hyperkalemia SNOMED: 95320130 (5) ISABEL (acute kidney injury) ICD Codes: N17.9 - Acute kidney failure, unspecified SNOMED: 33377416 (6) Morbid obesity ICD Codes: E66.01 - Morbid (severe) obesity due to excess calories SNOMED: 182990842, 98162687381114 (7) Chest pain ICD Codes: R07.9 - Chest pain, unspecified SNOMED: 91637111 Qualifiers: Qualified Codes: R07.9 - Chest pain, unspecified Status: stable, progressing, tolerating diet Assessment/Plan ot pt diet o2 pulm tx psyc tx dc plan Subjective Constitutional: Reports: weakness Allergies: Coded Allergies: No Known Allergies (Unverified , 08/23/16) All Systems: reviewed and negative except above Subjective calm sleepy in wc Objective Last 24 Hour Vital Signs Date Time Temp Pulse Resp B/P Pulse Ox O2 Delivery O2 Flow Rate FiO2 08/26/16 11:39 97.1 78 19 119/55 99 Room Air 08/26/16 10:01 100 140/63 08/26/16 10:01 100 140/63 08/26/16 07:52 98.3 100 21 140/63 96 Room Air 08/26/16 07:41 Room Air 08/26/16 04:00 99.1 87 18 114/56 89 Room Air 08/26/16 00:00 96.6 97 20 135/63 92 Room Air 08/25/16 20:56 87 117/53 08/25/16 20:00 98.7 87 20 117/53 92 Room Air 08/25/16 19:41 84 20 Room Air 08/25/16 16:42 97.1 84 20 130/68 95 Room Air Intake and Output 08/25/16 08/26/16 19:00 07:00 Intake Total 600 ml 1180 ml Output Total 700 ml Balance 600 ml 480 ml Intake Oral 600 ml 1180 ml Output Stool Total 700 ml # Voids 2 4 Laboratory Tests 08/26/16 10:20: White Blood Count 8.7, Red Blood Count 3.97L, Hemoglobin 9.6L, Hematocrit 31.8L , Mean Corpuscular Volume 80, Mean Corpuscular Hemoglobin 24.1L, Mean Corpuscular Hemoglobin Concent 30.1L, Red Cell Distribution Width 16.8H, Platelet Count 275, Mean Platelet Volume 5.6L, Neutrophils (%) (Auto) 67.3, Lymphocytes (%) (Auto) 23.5, Monocytes (%) (Auto) 7.3, Eosinophils (%) (Auto) 1.6, Basophils (%) (Auto) 0.4, Sodium Level 140, Potassium Level 5.2H, Chloride Level 102, Carbon Dioxide Level 22, Anion Gap 16H, Blood Urea Nitrogen 47H, Creatinine 2.8H, Estimat Glomerular Filtration Rate , Glucose Level 102, Calcium Level 8.6 Height (Feet): 4 Height (Inches): 10.00 Weight (Pounds): 201 General Appearance: lethargic EENT: normal ENT inspection Neck: normal alignment Cardiovascular: normal peripheral pulses, normal rate, regular rhythm Respiratory/Chest: chest wall non-tender, lungs clear, normal breath sounds Abdomen: normal bowel sounds, non tender, soft Extremities: normal inspection Edema: no edema noted Arm (L), no edema noted Arm (R), no edema noted Leg (L), no edema noted Leg (R), no edema noted Pedal (L), no edema noted Pedal (R), no edema noted Generalized Neurologic: responsive, motor weakness Skin: normal pigmentation, warm/dry ROSALES PHELPS Aug 26, 2016 14:34
[2016-08-26 15:36] VITALS: BP 142/67
[2016-08-26 17:36] VITALS: BP 138/57
[2016-08-27 06:38] LABS: LACTATE DEHYDROGENASE 173 U/L (135-225)
--- NOTE | 2016-08-29 08:39 | Discharge Summary ---
Discharge Summary Hospital Course Date of Admission August 23, 2016 at 05:04 Date of Discharge Aug 26, 2016 at 16:52 Admitting Diagnosis CHEST PAIN,ACUTE CORONARY SYNDROME HPI Aisha Frias is a 76 year old female who was admitted on August 23, 2016 at 05:04 for Chest Pain, Acute Coronary Syndrome Hospital Course dc summary #[id number] Discharge Medications Continued Medications: Amlodipine Besylate (Norvasc) 10 Mg Tablet 10 MG ORAL DAILY, TAB Insulin Regular, Human* (Novolin R*) 100 Unit/1 Ml Vial 0 SUBQ .SLIDING SCALE, UNITS Lamotrigine* (Lamictal*) 100 Mg Tablet 100 MG ORAL BID, #30 TAB 0 Refills Nitroglycerin (Nitroglycerin) 0.4 Mg Tab.subl 0.4 MG SL, TAB Polyethylene Glycol 3350* (Miralax*) 17 Gm Powd.pack 17 GM ORAL DAILY, PACKET Temazepam* (Restoril*) 15 Mg Capsule 15 MG ORAL BEDTIME PRN for Insomnia, CAP Discontinued Medications: Acetaminophen (Tylenol) 325 Mg Tablet 650 MG ORAL Q4HR PRN for Pain Scale (3-5), #30 TAB 0 Refills Acetaminophen (Acetaminophen) 650 Mg/20.3 Ml Solution 1000 MG ORAL Q4HR PRN for Pain Scale (6-10), ML 0 Refills Aspirin* (Aspirin*) 81 Mg Tab.chew 81 MG ORAL DAILY, TAB Atorvastatin Calcium* (Lipitor*) 10 Mg Tablet 10 MG ORAL BEDTIME, TAB Docusate Sodium* (Docusate Sodium*) 250 Mg Capsule 250 MG ORAL ONCE, CAP Ferrous Sulfate* (Ferrous Sulfate*) 325 Mg Tablet 325 MG ORAL DAILY, #30 TAB 0 Refills Glipizide* (Glipizide*) 5 Mg Tablet 2.5 MG ORAL DAILY, TAB Insulin Regular, Human* (Novolin R*) 100 Unit/1 Ml Vial 0 SUBQ .SLIDING SCALE, UNITS Linagliptin (Tradjenta) 5 Mg Tablet 5 MG PO, TAB Mag Hydrox/Al Hydrox/Simeth (Alum-Mag Hydroxide-Simeth Liq) 360 Ml Oral.susp 30 ML PO EVERY 4 HOURS PRN for gi distress, ML Magnesium Hydroxide* (Milk Of Magnesia*) 400 Mg/5 Ml Oral.susp 30 ML ORAL DAILY PRN for Constipation, ML Multivitamin (Multivitamins) 1 Each Tablet 1 EACH PO, TAB Nitroglycerin (Nitroglycerin) 0.4 Mg Tab.subl 0.4 MG SL PRN PRN for Prn Chest Pain, TAB Ondansetron Hcl* (Zofran*) 8 Mg Tablet 8 MG ORAL Q6H PRN for Nausea & Vomiting, #4 TAB 0 Refills Paliperidone Palmitate (Invega Sustenna) 156 Mg/1 Ml Syringe 156 MG IM, EA Polyethylene Glycol 3350* (Miralax*) 17 Gm Powd.pack 17 GM ORAL DAILY, PACKET Pravastatin Sod* (Pravastatin Sod*) 20 Mg Tablet 10 MG ORAL BEDTIME, TAB Temazepam* (Restoril*) 15 Mg Capsule 15 MG ORAL BEDTIME PRN for Insomnia, CAP Vit B Cmplx 3/Fa/Vit C/Biotin (Nephro-Sylvester Rx Tablet) 1 Each Tablet 1 EACH PO, TAB Ziprasidone Hcl* (Geodon*) 40 Mg Capsule 60 MG ORAL DAILY, #30 CAP 0 Refills Discharge Discharge Disposition Patient was discharged to SNF/Subacute Facility(03) Discharge Diagnoses: Juan (Dennisghada)Leda NP Aug 29, 2016 08:39
--- NOTE | 2016-08-30 06:45 | Discharge Summary 2 SIG ---
DATE OF ADMISSION: 08/23/2016 DATE OF DISCHARGE: 08/26/2016 REASON FOR ADMISSION: 76-year-old female presented with shortness of breath for four days worse at night , improved with sitting up. The patient slept with 1 pillow. She reported some weight gain from 197 in 03/2016 and current - 208. The patient denied fevers, chills. She admitted to eating lots of salty foods. The patient's past medical history included COPD, bipolar disorder, schizophrenia, renal disease, diabetes and anemia. The patient had no known history of congestive heart failure. The patient was afebrile. Blood pressure- 143/61. Pulse oximetry 95% on the room air. Troponin was negative. Potassium - 5.1, treated with albuterol. EKG revealed sinus rhythm, no ST changes. No acute ischemic changes. Noted elevated pro BNP-261 with bilateral lower extremities pitting edema. BUN -35 and creatinine -2.5. Chest x-ray revealed cardiomegaly, mild pulmonary congestion. The patient was not given Lasix in ER, giving acute kidney injury. The patient required admission to rule out acute coronary syndrome versus acute congestive heart failure. ADMITTING DIAGNOSES: 1. Chest pain, rule out acute coronary syndrome. 2. Dyspnea. 3. Acute kidney injury. 4. Hyperkalemia. 5. Diabetes. 6. Hypertension. 7. Fluid overload/hypervolemia HOSPITAL COURSE: The patient was admitted. Serial troponin were negative. EKG revealed no acute ischemic changes. Therefore, the patient ruled out for acute myocardial infarction. Lieutenant/Deputy followed. Per Cardiology, dyspnea was likely secondary to hypervolemia from chronic kidney disease. and chest pain was atypical. Supplemental oxygen and pulmonary toilet were provided as needed. Prior to discharge, pulse oximetry on room air was stable. No evidence of chronic obstructive pulmonary disease exacerbation. Chest x-ray revealed cardiomegaly and mild pulmonary congestion and initial pro BNP - 261. Echocardiogram revealed preserved ejection fraction of 55%, right ventricular systolic pressure of 69 consistent with severe pulmonary hypertension. Lipid panel was stable. The patient was diuresed. Intake and output, renal parameters and electrolytes were closely monitored. Hyperkalemia was treated with Kayexalate. Billet Inspector closely followed. Blood pressure was managed with calcium channel jassi and beta-jassi was stable. Venous duplex of bilateral lower extremities was negative. Renal ultrasound revealed bilateral echogenic kidneys suggestive of chronic kidney disease. Billet Inspector recommended avoid nephrotoxic and low-potassium diet. Per Billet Inspector, chronic kidney disease was likely secondary to diabetic nephropathy versus hypertensive nephrosclerosis with nephrotoxic-range proteinuria. Blood sugar was managed with sliding scale of insulin . Hemoglobin and hematocrit were closely monitored, at baseline, likely anemia of chronic renal disease. The patient was working with physical and occupational therapists. Edema of bilateral lower extremities likely due to the chronic Norvasc use versus hypervolemia from chronic kidney disease. Psychiatric medication were resumed. Patient's clinical condition improved during the course of stay. No respiratory distress. No complaints of dyspnea, [facility]. DISCHARGE DIAGNOSES 1. Atypical chest pain. 2. Dyspnea secondary to hypovolemia. 3. Chronic obstructive pulmonary disease. 4. Chronic kidney disease. 5. Hypertension. 6. Current smoker. 7. Diabetes mellitus. 8. Mild hyperkalemia. 9. Morbid obesity. 10. Anemia of chronic disease. 11. Severe pulmonary hypertension. 12. Edema lower extremities. 13. Schizophrenia, bipolar type. Emir Ragland D.O. [facility]St[facility] ManhattanEricks[place] N.PAdan DR: KOURTNEY JOB#: [id number] CC: PRATEEK
[2016-08-30 12:18] LABS: ANTI DNA DS ANTIBODY <1 IU/mL (0-9); COMPLEMENT C3 138 mg/dL (82-167); COMPLEMENT C4 42 mg/dL (14-44)
[2016-08-30 12:18] LABS: CORTISOL LC 14.3 ug/dL (.); FREE TRIIODOTHYRONINE 2.1 pg/mL (2.0-4.4)
[2016-08-30 12:18] LABS: CREATININE RANDOM URINE 33.5 mg/dL (Not Estab.); MICROALBUMIN/CREATININE RATIO 2487.2 mg/g creat (0.0-30.0)
--- NOTE | 2016-09-01 20:00 | Progress Note ---
DATE: 08/26/2016 SUBJECTIVE: This is a 76-year-old female patient. She continues to have some confusion, but also mood lability. I am going to continue treatment with Lamictal 100 mg q.12 h. Chart reviewed and discussed with staff. . The patient seen and assessed at bedside. Paola Canchola M.D. DR: MICK JOB#: [id number] CC:
--- NOTE | 2016-09-01 20:30 | Consultation ---
DATE OF CONSULTATION: 08/23/2016 INITIAL PSYCHIATRIC CONSULTATION CONSULTING PHYSICIAN: Paola Canchola M.D. REFERRING PHYSICIAN: Emir Ragland D.O. HISTORY OF PRESENT ILLNESS: This is a 76-year-old female patient. She has been having problems with chest pain and acute coronary syndrome, admitted for those reasons, but she also has a history of mood lability and bipolar disorder, currently on Lamictal 100 mg twice a day. psychiatric consultation to prevent any decline in her cognition and mood lability secondary to stress from medical illness. She appears to have some mood lability and irritability, but overall denies suicidal or homicidal thoughts, unable to formulate self care at this time. However, cognition has declined slightly below baseline and mood lability has slightly increased secondary to progression of her medical illness. PAST MEDICAL HISTORY: She has hypertension, congestive heart failure, hyperlipidemia, acute coronary syndrome, and chest pain. SOCIAL HISTORY: She is financially supported [employer] and Medicare and lives at [facility]. SUBSTANCE ABUSE HISTORY: Denies drug or alcohol abuse. MEDICATIONS: Psychotropic medications on admission include Lamictal 100 mg q.12 h. PAST PSYCHIATRIC HISTORY: She has had multiple psychiatric admissions with diagnosis of bipolar disorder. MENTAL STATUS EXAMINATION: The patient is a 76-year-old female, psychomotor retardation. Mood is depressed. Affect guarded and restricted. Thought process disorganized and illogical. Denies any current suicidal or homicidal thoughts. Insight and judgment poor. PSYCHIATRIC DIAGNOSIS: Bipolar II. PLAN: My plan for this patient is to treat her with Lamictal 100 mg q.12 h. Chart reviewed and discussed with staff. I would like to thank Dr. Emir Ragland for this interesting consultation. Paola Canchola M.D. DR: JOSÉ MIGUEL JOB#: [id number] CC:
--- NOTE | 2016-09-01 23:45 | Progress Note ---
DATE: 08/24/2016 SUBJECTIVE: This is a 76-year-old female patient. She still has some mood lability and treated with Lamictal 100 mg twice a day. Chart reviewed. Discussed with staff. The patient seen and assessed at bedside. Paola Canchola M.D. DR: MICK JOB#: [id number] CC:
--- NOTE | 2016-09-02 | Progress Note ---
DATE: 08/25/2016 SUBJECTIVE: This is a 76-year-old female patient. PLAN: I am going to continue treatment with Lamictal 100 mg twice a day, provide her with supportive therapy and behavior management. Chart was reviewed and discussed with staff. The patient was seen and assessed at the bedside. Paola Canchola M.D. DR: MICK JOB#: [id number] CC:
== END 2016-08-26 16:52 | DRG 640 ==
LOC: ENRESERVTM → ENRESERVDT → EDBD 02:41 → EMR 02:57 → EDBEDREQ 04:55 → 2E 05:04 → 3E 08-24 06:26
DX: E86.1 Hypovolemia (principal); N17.0 Acute kidney failure with tubular necrosis; G93.40 Encephalopathy, unspecified; I13.0 Hypertensive heart and chronic kidney disease with heart failure and stage 1 through stage 4 chronic kidney disease, or unspecified chronic kidney disease; Z68.41 Body mass index [BMI] 40.0-44.9, adult; I27.2 Other secondary pulmonary hypertension; I50.9 Heart failure, unspecified; E11.22 Type 2 diabetes mellitus with diabetic chronic kidney disease; E87.5 Hyperkalemia; N18.9 Chronic kidney disease, unspecified; D63.1 Anemia in chronic kidney disease; R07.89 Other chest pain; F17.210 Nicotine dependence, cigarettes, uncomplicated; E66.01 Morbid (severe) obesity due to excess calories; F20.9 Schizophrenia, unspecified; J44.9 Chronic obstructive pulmonary disease, unspecified; F31.9 Bipolar disorder, unspecified; K21.9 Gastro-esophageal reflux disease without esophagitis
CPT/HCPCS: 36415; 71010; 76775; 80048; 80053; 80061; 80300; 81001; 81003; 82043; 82044; 82378; 82436; 82533; 82550; 82553; 82570; 82607; 82746; 82962; 83540; 83550; 83615; 83735; 83880; 83930; 83935; 84100; 84133; 84300; 84439; 84443; 84481; 84484; 84550; 85007; 85025; 85044; 85060; 85610; 85651; 85730; 86021; 86140; 86160; 86162; 86225; 86256; 87081; 89050; 93005; 93306; 93970; 94640; 94664; 97803; J1815